=== PATIENT | male | born 1960 | race African-American/Black ===

== ENCOUNTER 2019-07-25 21:21 | Emergency (ER) | payer BC, OTHER ==
[~2019-07-25] VITALS: Ht 177.8 cm; Wt 86.6 kg
[~2019-07-25 21:21] MED LIST: AMLODIPINE BESYL5 M1 PO; ATORVASTATIN CA20 MG PO; AUGMENTIN 875875 MG PO; COLACE100 MG PO; HYDROCODONE-AP1 EAC6 PO; MIRALAX17 GM PO; PLAVIX 75 MG TA75 M1 PO; PRINIVIL20 MG PO; TOPROL XL100 MG PO; VITAMIN D1000 UNI1 PO; XANAX1 MG PO
[2019-07-25] MEDS ORDERED: VALTREX1000 MG PO (21:34)
[2019-07-25] MEDS ORDERED: LUBRICANT DRY E15 ML TOP (21:34)
[2019-07-25] MEDS ORDERED: PREDNISONE 20 M20 MG PO (21:34)
[2019-07-25 22:41] VITALS: BP 1173/11
== END 2019-07-25 22:51 | disposition home or self-care (01) ==
LOC: ER 21:21
DX: G51.0 Bell's palsy (principal); F17.210 Nicotine dependence, cigarettes, uncomplicated; I10 Essential (primary) hypertension; E78.5 Hyperlipidemia, unspecified; K21.9 Gastro-esophageal reflux disease without esophagitis; Z95.5 Presence of coronary angioplasty implant and graft; Z88.8 Allergy status to other drugs, medicaments and biological substances

== ENCOUNTER 2020-05-26 19:32 | Inpatient (IN) | payer BC, OTHER ==
[~2020-05-26] VITALS: Ht 177.8 cm; Wt 79.4 kg
--- NOTE | ~2020-05-26 | HC ---
[facility] [place] [address] CONSULTATION Name: JANES BREAUX Room #: 210- ADM IN M.R.#: [id number] Admission: 05/26/20 Attend Phys: Vance Cedillo MD Discharge: Date of : 62 Report #: [id number] THIS REPORT FOR: cc: ROCÍO - No family physician/PCP ROCÍO - No family physician/PCP Adair Helton MD ~ CC: [facility] physician/PCP Vance Cedillo DATE OF SERVICE: 06/01/2020 HISTORY OF PRESENT ILLNESS: The patient is a 60-year-old -Ukrainian male admitted to [facility] with prior MT, stents x 7, hypertension, hyperlipidemia, GERD and Cristobal's palsy. He had chest pain, shortness of breath. He was ruled in for an acute MT and had a JULIETA stent placed. He has new onset atrial fibrillation. He also had acute hypoxic respiratory failure. We are seeing him now in rehabilitation medicine consultation. PAST MEDICAL HISTORY: Includes hypertension, prior MT in 2004 and 2010 with 7 stents, hyperlipidemia, GERD, Cristobal's palsy. HABITS: Current every day tobacco smoker. Alcohol use monthly. MEDICATIONS: Please see the full medication listing. ALLERGIES: LISINOPRIL. SOCIAL HISTORY: Lives in an apartment alone, 12 steps in. No assistive device. 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 REVIEW OF SYSTEMS: Did not offer any current complaints of chest pain, shortness of breath or abdominal discomfort. PHYSICAL EXAMINATION: GENERAL: This is a 60-year-old slender -Ukrainian male in no obvious distress. VITAL SIGNS: Last recorded temperature 98.8, pulse 81, respirations 18, blood pressure is 94/64. He is alert, pleasant, and oriented. 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 He is alert and good historian. EXTREMITIES: Functional range of motion to both upper extremities without focal weakness. Lower extremities functional range of motion without obvious focal weakness. He has been able to ambulate 250 feet without an assistive device. Standby assistance and did well with showers, lower extremity dressing and basic ADLs and Occupational Therapy has actually discharged him. ASSESSMENT: This is a 60-year-old -Ukrainian male with the following [facility] [address] [place] [address] CONSULTATION Name: NAMITAJANES Petar Room #: 210-P [facility] IN [facility].#: [id number] Admission: 05/26/20 Attend Phys: Vance Cedillo MD Discharge: Date of : 62 Report #: [id number] problems: 1. Acute myocardial infarction, now status post JULIETA stent. 2. New onset atrial fibrillation. 3. Prior history of myocardial infarction and multiple stents. 4. Hypertension. 5. Gastroesophageal reflux disease. 6. Cristobal's palsy. 7. Prior history of chronic tobacco usage. He knows that he must quit. PLAN: The patient is actually too high level to warrant an acute in-hospital inpatient rehabilitation stay. He is doing quite well and would anticipate he should be able to return directly home when medically cleared. Occupational Therapy has already discharged him and he is at a high level with physical therapy. He might benefit from some cardiac rehab as an outpatient or whatever Cardiology feels is appropriate. Thank you for asking us to assist in this patient's care. By: [phone] Adair Helton MD /PMT
[~2020-05-26 19:32] MED LIST changes: +LUBRICANT DRY E15 ML TOP; +PREDNISONE 20 M20 MG PO; +VALTREX1000 MG PO
[2020-05-26 19:34] VITALS: BP 164/116
[2020-05-26 20:07] LABS: ABSOLUTE NEUTROPHILS 12.1 thou/uL (1.4-8.2); BASOPHILS 0.8 % (0.0-2.0); EOSINOPHILS 0.1 % (0.0-3.0); HEMATOCRIT 41.4 % (42.0-52.0); HEMOGLOBIN 13.2 gm/dL (14.0-18.0); LYMPHOCYTES 10.6 % (24.0-44.0); MCH 26.3 pg (26.0-34.0); MCHC 31.8 g/dL (28.0-37.0); MCV 82.8 fL (80.0-100.0); MONOCYTES 9.4 % (1.0-8.0); PLATELET COUNT 273 thou/uL (150-400); POLYS 79.1 % (36.0-66.0); RDW 21.4 % (10.5-14.5); WBC 15.2 thou/uL (4.0-11.0)
[2020-05-26 20:10] LABS: CALCIUM 9.3 mg/dL (8.5-10.1); CREATININE 1.2 mg/dL (0.7-1.3); POTASSIUM 4.2 mmol/L (3.5-5.1)
[2020-05-26 20:41] LABS: TROPONIN-I 166.72 ng/mL (<0.06)
--- NOTE | 2020-05-26 20:50 | NUR ---
SPOKE TO SODA JERKER NURSE
[2020-05-26 21:30] VITALS: BP 145/97
[2020-05-26 23:41] VITALS: BP 136/110
[2020-05-26 23:45] VITALS: BP 138/111
[2020-05-27] VITALS (43 sets, daily range): BP systolic 98–149; BP diastolic 63–117
--- NOTE | 2020-05-27 00:22 | NUR ---
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 Right groin site soft, no s/s of bleeding or hematoma. Santana cath placed per pt request since he cannot urinate laying down and received Lasix 40 mg IVP x2 in track repair laborer. Monitor ST, rate 114; pt on 2 L nasal canula, sat 97%/
[2020-05-27 05:43] LABS: HEMATOCRIT 37.6 % (42.0-52.0); HEMOGLOBIN 11.9 gm/dL (14.0-18.0); MCH 26.2 pg (26.0-34.0); MCHC 31.7 g/dL (28.0-37.0); MCV 82.5 fL (80.0-100.0); RBC 4.56 mil/uL (4.50-6.00); RDW 21.3 % (10.5-14.5); WBC 12.7 thou/uL (4.0-11.0)
[2020-05-27 06:13] LABS: ALBUMIN 3.2 g/dL (3.4-5.0); CALCIUM 8.8 mg/dL (8.5-10.1); CREATININE 1.2 mg/dL (0.7-1.3); POTASSIUM 4.2 mmol/L (3.5-5.1); TOTAL BILIRUBIN 0.6 mg/dL (0.2-1.0); TOTAL PROTEIN 6.9 g/dL (6.4-8.2)
[2020-05-27 06:37] LABS: CHOLESTEROL 132 mg/dL (<200); HDL CHOLESTEROL 49 mg/dL (>40); LDL CHOLESTEROL 68 mg/dL (<100); SERUM ASSESSMENT Clear; TC:HDL 2.7 Ratio (Not establshd); TRIGLYCERIDE 77 mg/dL (<150); VLDL 15 mg/dL (<40)
[2020-05-27 07:05] LABS: TROPONIN-I 175.88 ng/mL (<0.06)
--- NOTE | 2020-05-27 07:34 | NUR ---
No chest pain or SOA since return from recyclable materials sorter. Monitor sinus tachycardia, 106-116, without ectopy. Diuresed well from Lasix given in recyclable materials sorter, 1700 cc this shift.
--- NOTE | 2020-05-27 11:24 | CATHLAB ---
[facility] [place] [address] [place] [address] [place] [address] INVASIVE PROCEDURE REPORT Name: JANES BREAUX Room #: 240-P ADM IN M.R.#: [id number] Admission: 05/26/20 Attend Phys: Vance Cedillo MD Discharge: Date of : 62 Report #: [id number] THIS REPORT FOR: cc: FAM - No family physician/PCP FAM - No family physician/PCP Samson Mann MD ~ APPROVED REPORT Study performed: 05/26/2020 21:19:16 Patient Details Patient Status: ED Room #: The patient is a 60 year-old male Event Personnel Samson Mann Water Project Engineer, Santana Akbar RN, Sara Martinez RTR, MINER PLACER Monitor, Enma Gómez RTR Scrub Procedures Performed Art Access - R femoral artery* Left Heart Cath w/or w/o Coronaries [id number] [facility] PTCA Single Vessel LAD [id number] [place] JULIETA Place w/wo Plasty Single OM 056125 Hemostasis w/ Mynx Indication CHF Current Status: Yes , Non-STEMI (>24 hrs to = 48 hrs), Dyspnea, Chest pain, The patient presented with postinfarct angina, with onset of chest discomfort greater than 24 hours prior to presentation. He has a history of 2 MIs and multiple stent placement at a different institution. He reported continuous chest pain and dyspnea, attributed to CHF. The initial troponin level was markedly elevated. With his continued chest pain, he was taken emergently to the cardiac catheterization laboratory. Risk Factors Peripheral Vascular Disease, Hypercholesterolemia, Coronary Artery DiseaseHypertension, Tobacco History () Previous Procedures/Diagnoses Previous PCI, Previous Femoral Procedure, Previous CO Procedure Narrative The Right Groin^ was infiltrated with 1% Lidocaine subcutaneous anesthesia. A PINNACLE 6FR Sheath #[id number] sheath was inserted into the RFA^. Coronary angiography was performed using coronary [facility] [place] [address] INVASIVE PROCEDURE REPORT Name: NAMITAJANES Petar Room #: 240-P [facility] IN .R.#: [id number] Admission: 05/26/20 Attend Phys: Vance Cedillo MD Discharge: Date of : 62 Report #: [id number] diagnostic catheters. The right coronary system was accessed and visualized with a JR4 catheter. The left coronary system was accessed and visualized with a JL4 catheter. The left ventricle was accessed and visualized with a ANGLED PIGTAIL catheter. Left ventricular/Aortic Valve gradient assessed via catheter pullback. Pre-demployment femoral angiogram was performed . Closure device was deployed with a 6 Fr MYNXGRIP 6/7F #[id number]. The patient tolerated the procedure well and there were no complications associated with the procedure. There was no hematoma. Intraoperative Conscious Sedation No conscious sedation was used. Fluoro Time: 27.09 minutes Dose: DAP 63733.90 cGycm2 3672 mGy Contrast Type and Amount: Visipaque-305ml Coronary Angiography The patient's coronary anatomy is right dominant. Diagnostic Cath Left Main The left main artery is a large-caliber vessel, patent with no flow-limiting lesions. LAD There are multiple overlapping stents at the ostium and extending out to the proximal/mid segment of the LAD. After giving of a moderate-sized first diagonal artery and septal food specialist, there is a total occlusion. Diagonal 1 This is a moderate-sized caliber vessel, extending out to the distal lateral wall. There is a moderate stenosis at the ostium. Circumflex Left circumflex artery gives off 1 moderate-sized OM vessel. OM1 There is a severe stenosis in the proximal segment, 99%. After that stenosis, the OM vessels supplies several branches as it travels down the lateral wall. Right Coronary The RCA is a dominant vessel with a stent in the midsegment. There is a total occlusion in the midsegment, appears chronic. R PDA This is filled via collateral circulation from the left coronary artery. RPLV This is filled via collateral circulation from the left coronary artery. Left Ventriculography Left Ventriculography was not performed. An LVEDP was measured and there is no gradient across the outflow tract. [facility] [address] [place] [address] INVASIVE PROCEDURE REPORT Name: ANAJANES ALVAREZ Room #: 240-P [facility] IN .R.#: [id number] Admission: 05/26/20 Attend Phys: Vance Cedillo MD Discharge: Date of : 62 Report #: [id number] Hemodynamics The aortic pressure is 151/115 mmHg with a mean of 130 mmHg. The left ventricular pressure is 136/38 mmHg with a mean of mmHg. The left ventricular end diastolic pressure is 53 mmHg. PCI Technique Lesion Percutaneous coronary intervention was performed on the Proximal/mid left anterior descending artery segment. The lesion stenosis prior to intervention was 100% with TASHI 0 flow. A VISTA 6FR XB 3.5 #[id number] Guide Catheter was used to engage the ostium. A Luge Wire (J) .014 X 182CM #[id number] Interventional Guidewire was used to cross the lesion. BALLOON DILATION A Balloon catheter Sprinter OTW 2.5 x 12 #[id number] was inserted and inflated up to 10.00atm for 17seconds. Additional Inflation: 14.00atm for 15seconds. Additional Inflation: 14.00atm for 12seconds. POST STENT DEPLOYMENT BALLOON DILATION A Balloon catheter TREK NC RX 2.75 X 12 #[id number] was inserted and inflated up to 24.00atm for 39seconds. Additional Inflation: 6.00atm for 17seconds. Additional Inflation: 6.00atm for 9seconds. Additional Inflation: 6 angela for 14 seconds COMMENTS With balloon angioplasty, there was scientologist of blood flow down to the mid segment of the LAD. No further PCI was performed due to complete occlusion of the distal LAD segment. PCI Technique Lesion 2 Percutaneous Coronary Intervention was performed on the first obtuse marginal branch segment. Percutaneous coronary intervention was performed on the first obtuse marginal branch segment. The lesion stenosis prior to intervention was 99% with TASHI 2 flow. A VISTA 6FR XB 3.5 #[id number] Guide Catheter was used to engage the ostium. A Luge Wire (J) .014 X 182CM #[id number] Interventional Guidewire was used to cross the lesion. Balloon Dilation A Balloon catheter Sprinter OTW 2.5 x 12 #[id number] was inserted and inflated up to 6.00atm for 17seconds. Additional Inflation: 10.00atm for 17seconds. Stent Deployment A drug-eluting stent RESOLUTE GATITO RX 2.5 X 22 #[id number] was inserted [address] [place] [address] INVASIVE PROCEDURE REPORT Name: JANES BREAUX Petar Room #: 240-P ADM IN M.R.#: [id number] Admission: 05/26/20 Attend Phys: Vance Cedillo MD Discharge: Date of : 62 Report #: [id number] and inflated up to 18.00atm for 25seconds. Post Stent Deployment Balloon Dilation A Balloon catheter Euphora NC RX 2.75 x 12 #[id number] was inserted and inflated up to 18.00atm for 12seconds. Additional Inflation: 18.00atm for 11seconds. Final angiography reveals 0 % stenosis with TASHI 3 flow. Conclusion 1. Successful insertion of a JULIETA to a moderate-sized OM1 vessel. 2. Hindu of blood flow down to the mid segment of the LAD. The distal LAD is completely occluded. 3. Chronic occlusion of the RCA, the distal branches are filled via collateral circulation from the left coronary artery. 4. Ischemic cardiomyopathy. 5. Recommend dual antiplatelet therapy and guideline directed medical therapy. <ELECTRONICALLY SIGNED> By: Samson Mann MD 05/27/20 1123 22 22 Samson Mann MD /INF
--- NOTE | 2020-05-27 12:03 | NUR ---
PT SLEEPY THIS SHIFT. REFUSED BREAKFAST. STATES HE WANTS TO SLEEP. PT REPORTS CHEST PAIN TO NURSE APPROX 11:28. CALLED AND NOTIFIED PHYSICIAN. NITRO GIVEN AND EKG PERFORMED PER ORDERS. PT STATES PAIN RESOLVED WITH NITRO. PROVIDER IN UNIT TO READ EKG. NO FURTHER ORDERS AT THIS TIME. PT RESTING IN BED WITH EYES CLOSED. CONTINUING TO MONITOR PT VS & DIURESIS.
--- NOTE | 2020-05-27 12:47 | HC ---
[facility] [place] [address] CONSULTATION Name: JANES BREAUX Room #: 240- ADM IN M.R.#: [id number] Admission: 05/26/20 Attend Phys: Vance Cedillo MD Discharge: Date of : 62 Report #: [id number] THIS REPORT FOR: cc: ROCÍO - Ashley family physician/PCP ROCÍO - No family physician/PCP Samson Mann MD ~ CC: Maria Dolores ALFORD physician/PCP DATE OF SERVICE: 05/26/2020 CARDIOLOGY CONSULTATION INDICATION: Chest pain. HISTORY OF PRESENT ILLNESS: This is a 60-year-old gentleman with a history of AR, CAD, multiple stents, hypertension, hyperlipidemia, GERD, facial droop and tobacco use, presenting with chest pain and shortness of breath. The patient reports that he developed substernal chest pain yesterday around noon time. The pain persisted all day long. Today, he woke up with pain and it became worse. Eventually, he decided to come to the ER. He had difficulty getting into the hospital, was found in the parking lot. He denies any recent fever, chills, nausea or diarrhea. He did have a cough. He also complains of shortness of breath. Initial EKG reveals sinus tachycardia with Q-waves in the anteroseptal leads with right bundle-branch block. Initial troponin is 166.72. His pain is improved with medications, still present. PAST MEDICAL HISTORY: Multiple MIs in 2004 and 2010. The patient has a history 7 coronary stents. Tobacco use, hypertension, hyperlipidemia and facial droop, GERD. ALLERGIES: LISINOPRIL, JARON INHIBITOR. MEDICATIONS: Include metoprolol 100 mg daily, clopidogrel 75, atorvastatin 20 mg daily, amlodipine 5 mg daily, Augmentin. SOCIAL HISTORY: Positive tobacco use, less than a pack a day. FAMILY HISTORY: Negative for premature CAD. REVIEW OF SYSTEMS: Please see HPI. PHYSICAL EXAMINATION: VITAL SIGNS: Blood pressure is 160/80, heart rate is 110 beats per minute. GENERAL APPEARANCE: This is an elderly-appearing male, in mild respiratory distress. [facility] [address] [place] [address] CONSULTATION Name: JANES BREAUX Room #: 240-P [facility] IN M.R.#: [id number] Admission: 05/26/20 Attend Phys: Vance Cedillo MD Discharge: Date of : 62 Report #: [id number] HEENT: Normocephalic, atraumatic. Oral mucosa moist. NECK: Supple. LUNGS: Diminished breath sounds at the bases. CARDIAC: Regular rate and rhythm, S1, S2 positive. ABDOMEN: Soft, nontender. EXTREMITIES: No cyanosis. Trace edema. ECG reveals sinus tachycardia, right bundle-branch block, Q-waves in the anteroseptal leads and inferior leads. Troponin level is positive at 166.72. ASSESSMENT AND PLAN: 1. Post-infarct angina greater than 24 hours onset. The patient reports having developed chest pain yesterday around noon time. Finally, decided to come to the ER today. Still having symptoms of chest discomfort. We will proceed with a cardiac catheterization. I discussed with him the risks, benefits and alternatives. The patient voices understanding. 2. Respiratory failure, rule out congestive heart failure. Chest x-ray is suggestive for heart failure. We will treat with Lasix. We will need an evaluation of his LV function. 3. Tobacco use, complete smoking cessation is advised. 4. Hypertension, elevated blood pressure, secondary to #1 and #2. Continue blood pressure medications. 5. Hypercholesterolemia, continue on Lipitor. 6. Peripheral vascular disease, history of left lower extremity stent. <ELECTRONICALLY SIGNED> By: Samson Mann MD 05/27/20 1247 2139 Samson Mann MD /nt
--- NOTE | 2020-05-27 15:55 | NUR ---
Chart reviewed and case discussed with the care team. Pt in Enhanced ISO with one covid neg and second test pending. The pt went to the label operator this am after presenting to the ER with chest pain and elev trop. 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 He lives in an apt and has health insurance in place for f/u care. The pt has a hx of CAD with previous stenting. No cm interventions indicated at this time. Will follow along should dc needs arise.
--- NOTE | 2020-05-27 20:46 | NUR ---
Pt has had two confirmed negative Covid swabs. Will be taken out of enhanced precautions per Infectious Disease nurse, Bridgette Delacruz RN, and made critical care tele. Pt to transfer to room 248.
[2020-05-28] VITALS (11 sets, daily range): BP systolic 94–122; BP diastolic 68–90
--- NOTE | 2020-05-28 00:25 | NUR ---
RECIEVED PATIENT FROM ROOM 240 TO 248, ASSUMED CARE AT 05/27/20 2300, PATIENT PLACED ON MONITOR, QUESTIONS ANSWERED. NO SIGN OF ACUTE DISTRESS NOTED AT THIS TIME.
--- NOTE | 2020-05-28 04:45 | NUR ---
RECEIVED REPORT FROM ENTERPRISE INTEGRATION DEVELOPER KIMBERLY, STATED PT WAS COMING BY WHEELCHAIR. PT AT THIS TIME IS RECEIVING ABX FLUID SO WHEN FINISHED, PT WILL TRANSFER TO ROOM 210. NO NAUSEA, PT ON 2L/NC, LOVELACE IN PLACE R/T LASIX, R GROIN FLAME BURNER SITE SECURED BY TEGADERM; RN TO MONITOR SITE Q4H OR PRN. WAS TOLD DR. SILVER IS ON THE CASE (CARDIOLOGY), REPORTED IF CHEST PAIN OCCURS TO ADMIN 3 NITRO, IF PAIN PERSIST THEN TO RETREIVE EKG IT MAY BE INDICATIVE OF STENT PLACEMENT OCCLUSION. AND TO NOTIFY DR. SILVER WILL CONTINUE TO UPDATE NEEDED
--- NOTE | 2020-05-28 05:45 | NUR ---
PATIENT ALERT AND ORIENTED X4, NO COMPLAINTS OF CHEST PAIN, SR-ST ON PSYCHIATRIST W/ BBB. 2/1 PULSES, RIGHT GROIN SITE INTACT WITH NO SIGN OF HEMATOMA. LOVELACE IN PLACE DUE TO IV LASIX ADMINISTRATION, DARK YELLOW URINE 300 ML OUT THROUGHOUT THE NIGHT. DISCUSSED PATIENT TRANSFERRING TO CCU PATIENT STATED WILL NOTIFY FAMILY IN THE MORNING. NO SIGN OF ACUTE DISTRESS NOTED AT THIS TIME, REPORT GIVEN TO ONCOMING RN TRANSFERRED FROM ICU BED 248 TO CCU BED 210.
[2020-05-28 05:55] LABS: ABSOLUTE NEUTROPHILS 10.7 thou/uL (1.4-8.2); BASOPHILS 0.8 % (0.0-2.0); EOSINOPHILS 0.1 % (0.0-3.0); HEMATOCRIT 34.1 % (42.0-52.0); HEMOGLOBIN 10.8 gm/dL (14.0-18.0); LYMPHOCYTES 10.7 % (24.0-44.0); MCH 26.1 pg (26.0-34.0); MCHC 31.6 g/dL (28.0-37.0); MCV 82.5 fL (80.0-100.0); MONOCYTES 9.7 % (1.0-8.0); PLATELET COUNT 212 thou/uL (150-400); POLYS 78.7 % (36.0-66.0); RBC 4.13 mil/uL (4.50-6.00); RDW 21.6 % (10.5-14.5); WBC 13.6 thou/uL (4.0-11.0)
[2020-05-28 06:27] LABS: CALCIUM 8.7 mg/dL (8.5-10.1); CREATININE 1.1 mg/dL (0.7-1.3); MAGNESIUM 1.8 mg/dL (1.8-2.4); POTASSIUM 3.4 mmol/L (3.5-5.1)
[2020-05-28 06:32] LABS: TROPONIN-I 40.45 ng/mL (<0.06)
--- NOTE | 2020-05-28 07:47 | EKG ---
[facility] [place] [address] ELECTROCARDIOGRAM REPORT Name: JANES BREAUX Room #: 210-P ADM IN M.R.#: [id number] Admission: 05/26/20 Attend Phys: Vance Cedillo MD Discharge: Date of : 62 Report #: [id number] THIS REPORT FOR: cc: ROCÍO - Ashley family physician/PCP ROCÍO - Ashley family physician/PCP Franco Ortiz MD [facility] THIS REPORT FOR: //name// [facility] ED Test Date: 2020-05-26 Test Time: 19:44:30 Pat Name: JANES BREAUX Department: Room: 210 Gender: M Medical Office Professional Instructor: : 1960 Requested By: Jose Calvillo Order Number: [id number] MD: Franco Ortiz Measurements Intervals [place] Rate: 119 P: 76 MI: 151 QRS: 126 QRSD: 149 T: 31 QT: 354 QTc: 499 Interpretive Statements Sinus tachycardia RBBB and LPFB Inferior infarct, possibly acute Anterior infarct, possibly acute Compared to ECG 06/24/2015 14:44:22 Left posterior fascicular block now present Right bundle-branch block now present Myocardial infarct finding now present Electronically Signed On 05-28-2020 7:47:39 CDT by Franco Ortiz [email or web address] <ELECTRONICALLY SIGNED> By: Franco Ortiz MD, [facility] 05/28/20 0747 43 43 Franco Ortiz MD, [facility] /EPI
--- NOTE | 2020-05-28 07:49 | EKG ---
[facility] [place] [address] ELECTROCARDIOGRAM REPORT Name: JANES BREAUX Room #: 210-P ADM IN M.R.#: [id number] Admission: 05/26/20 Attend Phys: Vance Cedillo MD Discharge: Date of : 62 Report #: [id number] THIS REPORT FOR: cc: ROCÍO - Ashley family physician/PCP ROCÍO - No family physician/PCP Franco Ortiz MD [facility] THIS REPORT FOR: //name// [facility] Test Date: 2020-05-27 Test Time: 08:28:52 Pat Name: JANES BREAUX Department: Room: 210 Gender: M Senior Electrical Engineer: PATTY : 1960 Requested By: Samson Mann Order Number: [id number] MD: Franco Ortiz Measurements Intervals [place] Rate: 120 P: 79 RI: 119 QRS: 117 QRSD: 155 T: 54 QT: 459 QTc: 649 Interpretive Statements Sinus tachycardia Probable left atrial enlargement RBBB and LPFB Inferior infarct, old Anterior infarct, acute (LAD) Compared to ECG 06/24/2015 14:44:[address] segment abnormality is less pronounced Electronically Signed On 05-28-2020 7:49:50 CDT by Franco Ortiz [email or web address] <ELECTRONICALLY SIGNED> By: Franco Ortiz MD, [facility] 05/28/20 0749 7 Franco Ortiz MD, FAC /EPI
--- NOTE | 2020-05-28 07:52 | EKG ---
[facility] [place] [address] ELECTROCARDIOGRAM REPORT Name: JNAES BREAUX Room #: 210-P ADM IN M.R.#: [id number] Admission: 05/26/20 Attend Phys: Vance Cedillo MD Discharge: Date of : 62 Report #: [id number] THIS REPORT FOR: cc: ROCÍO - Ashley family physician/PCP ROCÍO - Ashley family physician/PCP Franco Ortiz MD [facility] THIS REPORT FOR: //name// [facility] Test Date: 2020-05-27 Test Time: 11:51:45 Pat Name: JANES BREAUX Department: Room: 210 Gender: M Legal Executive: PATTY : 1960 Requested By: Samson Mann Order Number: [id number] MD: Franco Ortiz Measurements Intervals [place] Rate: 119 P: 65 MS: 118 QRS: 113 QRSD: 153 T: 44 QT: 466 QTc: 656 Interpretive Statements Sinus tachycardia Probable left atrial enlargement RBBB and LPFB Inferior infarct, old Anterior infarct, recent Compared to ECG 05/27/2020 08:28:52 No significant changes Electronically Signed On 05-28-2020 7:52:01 CDT by Franco Ortiz [email or web address] <ELECTRONICALLY SIGNED> By: Franco Ortiz MD, [facility] 05/28/20 0752 1151 1151 Franco Ortiz MD, [facility] /EPI
--- NOTE | 2020-05-28 09:15 | 2DMMODE ---
[facility] [place] [address] 2 D/M-MODE ECHOCARDIOGRAM Name: JANES BREAUX Room #: 210-P ADM IN M.R.#: [id number] Admission: 05/26/20 Attend Phys: Vance Cedillo MD Discharge: Date of : 62 Report #: [id number] THIS REPORT FOR: cc: FAM - No family physician/PCP FAM - No family physician/PCP Samson Mann MD ~ APPROVED REPORT Study performed: 05/28/2020 07:22:15 EXAM: Comprehensive 2D, Doppler, and color-flow Echocardiogram Patient Location: Bedside Room #: 210 Status: routine BSA: 2.00 HR: 100 bpm BP: 117/77 mmHg Rhythm: Irregular Other Information Study Quality: Adequate/low parasternal window. Indications Chest pain, SOB. Status post STEMI and PCI. Heart failure. Hx: TX, multiple stents, HTN, HLP, tob abuse. 2D Dimensions RVDd: 36.76 mm IVSd: 10.42 (7-11mm) LVOT Diam: 19.51 (18-24mm) LVDd: 45.19 mm PWd: 11.54 (7-11mm) LVDs: 36.50 (25-40mm) Aortic Root: 32.11 mm Volumes Left Atrial Volume (Systole) Single Plane 4CH: 38.85 mL Single Plane 2CH: 70.32 mL LA ESV Index: 29.00 mL/m2 Aortic Valve AoV Peak Richard.: 1.54 m/s AO Peak Gr.: 9.47 mmHg LVOT Max P.90 mmHg LVOT Max V: 1.21 m/s CORRINA Vmax: 2.36 cm2 [facility] [address] [place] [address] 2 D/M-MODE ECHOCARDIOGRAM Name: ANAJANES ALVAREZ Room #: 210-P [facility].#: [id number] Admission: 05/26/20 Attend Phys: Vance Cedillo MD Discharge: Date of : 62 Report #: [id number] Mitral Valve E/A Ratio: 1.5 MV Decel. Time: 134.22 ms MV E Max Richard.: 0.94 m/s MV A Richard.: 0.64 m/s MV PHT: 38.92 ms IVRT: 64.59 ms Pulmonary Valve PV Peak Richard.: 1.38 m/s PV Peak Gr.: 7.67 mmHg Pulmonary Vein P Vein S: 0.31 m/s P Vein A: 0.44 m/s P Vein D: 0.44 m/s P Vein A Dur.: 83.0 msec P Vein S/D Ratio: 0.70 Tricuspid Valve TR Peak Richard.: 3.19 m/s RAP Estimate: 15.00 mmHg TR Peak Gr.: 41.00 mmHg PA Pressure: 56.00 mmHg Left Ventricle The left ventricle is normal size. Regional wall motion abnormalities are noted. There is normal left ventricular wall thickness. Left ventricular systolic function is moderate to severely decreased. LVEF is 30%. Moderate diastolic dysfunction is present. Right Ventricle The right ventricle is normal size. The right ventricular systolic function is low normal. Atria The left atrium size is normal. The right atrium size is normal. Aortic Valve Aortic valve is mildly calcified. No aortic regurgitation is present. There is no aortic valvular stenosis. Mitral Valve Mitral valve leaflets are mildly thickened. Mild mitral annular calcification. Mild to moderate mitral regurgitation. No evidence of mitral valve stenosis. Tricuspid Valve [facility] [address] [place] [address] 2 D/M-MODE ECHOCARDIOGRAM Name: JANES BREAUX Room #: 210-P ADM IN M.R.#: [id number] Admission: 05/26/20 Attend Phys: Vance Cedillo MD Discharge: Date of : 62 Report #: [id number] The tricuspid valve is normal in structure. Mild tricuspid regurgitation. Estimated PAP is 50mmHg. Pulmonic Valve Pulmonic valve is not well visualized. Trace pulmonic regurgitation. Great Vessels The aortic root is normal in size. Ascending aorta is not well visualized. IVC is dilated and collapses <50% with inspiration. Pericardium There is no pericardial effusion. <Conclusion> The left ventricle is normal size. Left ventricular systolic function is moderate to severely decreased. LVEF is 30%. Regional wall motion abnormalities are noted. Moderate diastolic dysfunction is present. The right ventricle is normal size. The left atrium size is normal. Aortic valve is mildly calcified. Mild to moderate mitral regurgitation. Mild tricuspid regurgitation. Estimated PAP is 50mmHg. <ELECTRONICALLY SIGNED> By: Samson Mann MD 05/28/20913 3 3 Samson Mann MD /INF
[2020-05-28 13:34] LABS: URINE BLOOD 2+ (Negative); URINE CLARITY CLEAR; URINE COLOR YELLOW; URINE GLUCOSE-RANDOM* NEGATIVE (Negative); URINE KETONES NEGATIVE (Negative); URINE LEUKOCYTES-REFLEX NEGATIVE (Negative); URINE NITRITE-REFLEX NEGATIVE (Negative); URINE PROTEIN (DIPSTICK) TRACE (Negative); URINE SPECIFIC GRAVITY >= 1.030 (1.005-1.035)
[2020-05-28 13:38] LABS: ICTOTEST (BILI CONFIRMATORY) Negative (Negative); URINE BILIRUBIN NEGATIVE (Negative)
[2020-05-28 13:47] LABS: BACTERIA-REFLEX 1-9 Few /HPF (None Seen); CASTS None Seen /LPF (None Seen); CRYSTALS None Seen /LPF (None Seen); SQUAMOUS 4-10 Moderate /LPF (0-3); URINE RBC 3-10 Few /HPF (0-2); URINE WBC-REFLEX 0-5 Rare /HPF (0-5)
--- NOTE | 2020-05-28 18:37 | NUR ---
ASSUMED CARE OF PATIENT AT 0700. ASSESSMENT COMPLETED. PATIENT COMPLAINED OF CHEST PAIN 8/10 AND WAS TREATED WITH NITRO X 3, TAKING PAIN TO 3/10. EKG ORDERED. PATIENT SEEN BY DR. SILVER AND ROX LOZOYA. PAIN REPRODUCIBLE BY DR. SILVER'S ASSESSMENT. PATIENT C/O FATIGUE AND NAUSEA. NAUSEA TREATED WITH ZOFRAN. PATIENT GIVEN NICOTINE PATCH. LOVELACE D/C AND PATIENT URINATED WITHOUT ANY PAIN OR DIFFICULTY. PATIENT UP IN CHAIR FROM LUNCH TO DINNER BEFORE ASKING TO GO BACK TO BED. PATIENT AMBULATED WITH CARDIAC REHAB AND OT. PATIENT'S NIECE WAS AT THE BEDSIDE FOR THE MAJORITY OF THE DAY. PATIENT TO CONTINUE WITH POC.
[2020-05-29] VITALS (7 sets, daily range): BP systolic 72–103; BP diastolic 59–74
[2020-05-29 05:31] LABS: ABSOLUTE NEUTROPHILS 10.5 thou/uL (1.4-8.2); BASOPHILS 0.4 % (0.0-2.0); EOSINOPHILS 0.1 % (0.0-3.0); HEMATOCRIT 33.4 % (42.0-52.0); HEMOGLOBIN 10.7 gm/dL (14.0-18.0); LYMPHOCYTES 9.3 % (24.0-44.0); MCH 26.3 pg (26.0-34.0); MCHC 32.2 g/dL (28.0-37.0); MCV 81.7 fL (80.0-100.0); MONOCYTES 11.4 % (1.0-8.0); PLATELET COUNT 239 thou/uL (150-400); POLYS 78.8 % (36.0-66.0); RBC 4.09 mil/uL (4.50-6.00); RDW 21.5 % (10.5-14.5); WBC 13.3 thou/uL (4.0-11.0)
[2020-05-29 05:35] LABS: CALCIUM 8.8 mg/dL (8.5-10.1); CREATININE 1.2 mg/dL (0.7-1.3)
[2020-05-29 06:10] LABS: TROPONIN-I 21.16 ng/mL (<0.06)
--- NOTE | 2020-05-29 08:11 | NUR ---
0505 PATIENT SLEPT MOST OF SHIFT PAST ULTRAM. TELEMETRY NOW SHOWS AFIB/FLUTTER 120-150'S. STAT EKG COMPLETED. CALL PLACED TO CARDIOLOGY. DR. PEGUERO NOTIFIED AND ORDERS RECIEVED. AMIODERONE GTT AND BOLUS STARTED. 0700 HR NOW IN THE 90'S. PATIENT RESTING QUIETLY WITHOUT PRESENT COMPLAINTS. CONTINUE TO ASSES CLOSELY.
--- NOTE | 2020-05-29 11:58 | NUR ---
CALLED [employer]RIE [employer] CALK[employer] TO INFORM OF HYPOTENSION. INSTRUCTED TO DC AMIODARONE GTT AND GIVE NS BOLUS. WILL CONTINUE TO ASSESS.
--- NOTE | 2020-05-29 16:01 | EKG ---
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 : 1960 Requested By: Zoe Mcfadden Order Number: [id number] MD: Franco Ortiz Measurements Intervals [place] Rate: 102 P: 75 ME: 156 QRS: 111 QRSD: 158 T: -45 QT: 405 QTc: 528 Interpretive Statements Sinus tachycardia Consider right atrial enlargement RBBB and LPFB Inferior infarct, age indeterminate Anterolateral infarct, recent Compared to ECG 05/27/2020 11:51:45 No significant changes Electronically Signed On 05-29-2020 16:00:50 CDT by Franco Ortiz [email or web address] <ELECTRONICALLY SIGNED> By: Franco Ortiz MD, FAC 05/29/20 1600 0 0 Franco Ortiz MD, FAC /EPI
--- NOTE | 2020-05-29 16:24 | EKG ---
[facility] [place] [address] ELECTROCARDIOGRAM REPORT Name: JANES BREAUX Room #: 210-P ADM IN M.R.#: [id number] Admission: 05/26/20 Attend Phys: Vance Cedillo MD Discharge: Date of : 62 Report #: [id number] THIS REPORT FOR: cc: ROCÍO - Ashley family physician/PCP ROCÍO - Ashley family physician/PCP Franco Ortiz MD [facility] THIS REPORT FOR: //name// [facility] Test Date: 2020-05-29 Test Time: 05:34:48 Pat Name: JANES BREAUX Department: Room: 210 P Gender: M Evp [place]: NAI TOURE : 1960 Requested By: Vance Cedillo Order Number: [id number] MD: Franco Ortiz Measurements Intervals [place] Rate: 106 P: CO: QRS: 120 QRSD: 152 T: -11 QT: 376 QTc: 500 Interpretive Statements Atrial flutter with predominant 3:1 AV block RBBB and LPFB Inferior infarct, old Anterior infarct, recent Compared to ECG 05/28/2020 08:31:09 Atrial flutter has replaced sinus tachycardia Electronically Signed On 05-29-2020 16:24:07 CDT by Franco Ortiz [email or web address] <ELECTRONICALLY SIGNED> By: Franco Ortiz MD, [facility] 05/29/20 1624 0534 0534 Franco Ortiz MD, FAC /EPI
--- NOTE | 2020-05-29 17:40 | NUR ---
INFORM DR VYAS OF PT'S LOW URINE OUTPUT. INSTRUCTED TO ECOURAGE PO FLUID.
--- NOTE | 2020-05-29 19:10 | NUR ---
PT UP WITH CARDIO REHAB AND PT/OT SEVERAL TIMES AROUND THE HALLS. PT TAKING IN GOOD PO. PROGRESSING TOWARDS GOALS.
[2020-05-30] VITALS (7 sets, daily range): BP systolic 88–119; BP diastolic 61–82
[2020-05-30 05:46] LABS: HEMOGLOBIN 10.7 gm/dL (14.0-18.0); MCH 26.7 pg (26.0-34.0); MCHC 32.4 g/dL (28.0-37.0); MCV 82.2 fL (80.0-100.0); RBC 4.02 mil/uL (4.50-6.00); RDW 21.3 % (10.5-14.5); WBC 9.8 thou/uL (4.0-11.0)
[2020-05-30 06:14] LABS: CREATININE 1.3 mg/dL (0.7-1.3); MAGNESIUM 2.3 mg/dL (1.8-2.4); POTASSIUM 3.9 mmol/L (3.5-5.1)
--- NOTE | 2020-05-30 06:32 | NUR ---
SLEPT MOST OF SHIFT. HAD 5 MINUTE RUN OF AFIB/FLUTTER THIS SHIFT AT 0007. PATIENT DENIES FEELING IT CHANGE. TRAMODAL GIVEN X2 FOR BACK AND NON CARDIAC CHEST PAIN. STATES THE PAIN IS WITH MOVEMENTS. UP AD SHADE IN ROOM WITH STEADY GAIT. WORKING ON GOALS AND PLAN OF CARE FOR NOC. CONTINUE TO MONITOR CLOSELY.
--- NOTE | 2020-05-30 18:43 | NUR ---
ASSUMED CARE OF PATIENT AT 0700. ASSESSMENTS COMPLETED. NO ABNORMAL CARDIAC RHYTHMS TODAY. DENIES ANY CHEST PAIN. PATIENT UP AD SHADE IN THE ROOM. PATIENT TAKING TRAMADOL FOR NON CARDIAC CHEST PAIN. PATIENT ANTICIPATING D/C MONDAY. PATIENT TO CONTINUE WITH POC.
[2020-05-31 05:34] VITALS: BP 107/77
--- NOTE | 2020-05-31 06:37 | NUR ---
ASSESSMENT DOCUMENTED PT BEEN RESTING IN NO ACUTE DISTRESS.SR/PACS/PVCS ON MONITOR.NO AFIB EPISODES NOTED.PT C/O NON CARDIAC CHEST PAIN THAT WAS CONTROLLED WITH PAIN MED.DENIES ANY OTHER NEEDS AT THIS TIME.PLAN TO DISCHARGE TOMORROW.WILL CONT TO MONITOR PER POC.
[2020-05-31 08:00] VITALS: BP 105/74
[2020-05-31 12:00] VITALS: BP 94/61
[2020-05-31 16:00] VITALS: BP 118/86
--- NOTE | 2020-05-31 17:12 | NUR ---
PT ALERT AND ORIENTED. SOB NOTED WITH ACTIVITY. SAT ABOVE 95% ON RA. DENIED HAVING PAIN. NO CARDIAC OR RESPIRATORY DISTRESS NOTED. PLAN TO BE DISCHARGE IN AM TO REHAB [address] [place] [address] TIMMONS CONSULTED. PT PROGRESSING WELL TOWARDS DISCHARGE GOAL. WILL CONTINUE TO MONITOR.
[2020-05-31 20:39] VITALS: BP 113/79
[2020-06-01 04:12] VITALS: BP 103/78
--- NOTE | 2020-06-01 05:12 | NUR ---
ASSESSMENT DOCUMENTED.PT BEEN RESTING IN NO ACUTE DISTRESS.VSS.C/O CONSTIPATION,MAG CITRATE WAS GIVEN WITH RESULTS OF BOWEL MOVEMENT AND PT VOICED MUCH RELIEF.PAIN MEDS GIVEN FOR NON CARDIAC CHEST PAIN WITH RELIEF.POSSIBLE DISCHARGE TODAY.WILL CONT TO MONITOR PER POC.
[2020-06-01 08:00] VITALS: BP 99/72
[2020-06-01 11:20] VITALS: BP 94/64
--- NOTE | 2020-06-01 13:33 | NUR ---
5N CONSULT RECEIVED. PER DR. TIMMONS, Pt IS TOO HIGH LEVEL FOR ACUTE REHAB. ACUTE OT SERVICES HAVE ALREADY DISCHARGED Pt. ANTICIPATE D/C TO HOME. THANK YOU FOR THIS REFERRAL.
[2020-06-01 16:00] VITALS: BP 100/72
--- NOTE | 2020-06-01 17:41 | NUR ---
ASSESSMENT CHARTED. PT ALERT AND ORIENTED. HAD LOW BP THIS AM. CARDIOLOGY AWARE. UP IN THE CHAIR THIS SHIFT. DENIED HAVING PAIN OR DISCOMFORT. PLAN TO DISCHARGE IN AM. WILL CONTINUE TO MONITOR.
[2020-06-01 20:10] VITALS: BP 111/83
--- NOTE | 2020-06-02 04:07 | NUR ---
ASSUMED PT CARE AT 1900. PT IS ALERT AND ORIENTED. PT IS SITTING IN PT. NO SIGN OF DISTRESS NOTED IN PT. DENIES ANY PT. ASSESSMENT COMPLETED AND DOCUMENTED. SCHEDULED MEDS ADMINISTERED TO PT. TOLERATED PO INTAKE. NO ACUTE EVENTS OVERNIGHT. CONTINUE TO MONITOR PT. NO NEEDS AT THIS TIME.
[2020-06-02 04:30] VITALS: BP 115/82
[2020-06-02 07:35] VITALS: BP 107/81
[2020-06-02 11:14] VITALS: BP 99/78
[2020-06-02 16:28] VITALS: BP 108/79
[2020-06-02 19:54] VITALS: BP 118/90
[2020-06-03 03:45] VITALS: BP 97/64
--- NOTE | 2020-06-03 04:30 | NUR ---
ASSUMED PT CARE AT 1900. PT IS ALERT AND ORIENTED. PT IS LAYING IN BED. PT IS STABLE. FALL PRECAUTION IN PLACE. ASSESSMENT COMPLETED AND DOCUMENTED. NO SIGN OF DISTRESS NOTED. PT IS EAGER TO GET DISCHARGED. SCHEDULED MEDS ADMINISTERED TO PT. CONTINUE TO MONITOR PT. NO FURTHER NEEDS AT THIS TIME.
[2020-06-03 07:13] VITALS: BP 118/92
[2020-06-03] MEDS ORDERED: CARVEDILOL3.125 MG PO (08:01)
[2020-06-03] MEDS ORDERED: LIPITOR40 MG PO (08:01)
[2020-06-03] MEDS ORDERED: PACERONE 200 M200 M1 PO (08:01)
[2020-06-03] MEDS ORDERED: ELIQUIS5 MG PO (08:01)
[2020-06-03] MEDS ORDERED: EFFIENT10 MG PO (08:01)
[2020-06-03 10:45] VITALS: BP 108/82
--- NOTE | 2020-06-03 11:38 | NUR ---
PT. RECEIVD DISCHARGE ORDERS AT THIS TIME AND WORKING IN SUCH NOW. HE IS "VERY EXCITED TO GO HOME TODAY". DENIES ANY PAIN CURRENTLY, VERY ALERT AND DISCUSSED REHAB WHEN HE GETS HOME AND ACITIVITIES GOOD FOR HIM TO DO. PT. HAS HIS NICOTINE PATCH ON AND I ENCOURAGED HIM TO TRY HIS BEST TO STOP SMOKING NOW SINCE HE HAS NOT BEEN DOING SUCH AND IT IS TH SINGLE BEST THING HE COULD DO FOR HIS CARDIAC OUTCOMES AND OVERALL HEALTH.
[2020-06-03 12:05] VITALS: BP 108/82
== END 2020-06-03 15:25 | disposition home or self-care (01) | DRG 246 ==
LOC: ER 19:32 → ICU 21:30 → EROBS 21:32 → ICU 21:32 → 2N 21:32 → ICU 05-27 00:47 → 2N 05-28 05:12
PROVIDERS: Emergency Medicine; Internal Medicine Cardiovascular Disease; Nurse Practitioner Family; ADMIT Internal Medicine; ATTEND Internal Medicine
PROC: 4A023N7 Measurement of Cardiac Sampling and Pressure, Left Heart, Percutaneous Approach (ICD-10-PCS; principal; 2020-05-26)
PROC: B211YZZ Fluoroscopy of Multiple Coronary Arteries using Other Contrast (ICD-10-PCS; principal; 2020-05-26)
PROC: 027135Z Dilation of Coronary Artery, Two Arteries with Two Drug-eluting Intraluminal Devices, Percutaneous Approach (ICD-10-PCS; principal; 2020-05-26)
DX: I21.02 ST elevation (STEMI) myocardial infarction involving left anterior descending coronary artery (principal); J18.9 Pneumonia, unspecified organism; J96.01 Acute respiratory failure with hypoxia; I50.23 Acute on chronic systolic (congestive) heart failure; E44.1 Mild protein-calorie malnutrition; I48.20 Chronic atrial fibrillation, unspecified; I48.92 Unspecified atrial flutter; I73.9 Peripheral vascular disease, unspecified; E78.5 Hyperlipidemia, unspecified; I11.0 Hypertensive heart disease with heart failure; I25.118 Atherosclerotic heart disease of native coronary artery with other forms of angina pectoris; E78.00 Pure hypercholesterolemia, unspecified; K21.9 Gastro-esophageal reflux disease without esophagitis; E87.6 Hypokalemia; F17.200 Nicotine dependence, unspecified, uncomplicated; F10.10 Alcohol abuse, uncomplicated; Z68.25 Body mass index [BMI] 25.0-25.9, adult; Z79.01 Long term (current) use of anticoagulants; I48.0 Paroxysmal atrial fibrillation; I25.5 Ischemic cardiomyopathy; I25.2 Old myocardial infarction; Z79.899 Other long term (current) drug therapy; Z88.8 Allergy status to other drugs, medicaments and biological substances; Z95.5 Presence of coronary angioplasty implant and graft
CPT/HCPCS: 10081; 10203

== ENCOUNTER 2020-06-10 15:11 | Inpatient (IN) | payer BC, OTHER ==
[~2020-06-10] VITALS: Ht 177.8 cm; Wt 79.4 kg
[~2020-06-10 15:11] MED LIST changes: +CARVEDILOL3.125 MG PO; +EFFIENT10 MG PO; +ELIQUIS5 MG PO; +LIPITOR40 MG PO; +PACERONE 200 M200 M1 PO
[2020-06-10 15:24] VITALS: BP 118/86
[2020-06-10 16:19] LABS: BASOPHILS 0.8 % (0.0-2.0); HEMATOCRIT 32.5 % (42.0-52.0); HEMOGLOBIN 10.7 gm/dL (14.0-18.0); LYMPHOCYTES 7.6 % (24.0-44.0); MCH 26.1 pg (26.0-34.0); MONOCYTES 10.5 % (1.0-8.0); PLATELET COUNT 586 thou/uL (150-400); POLYS 81.1 % (36.0-66.0); RBC 4.12 mil/uL (4.50-6.00); RDW 20.2 % (10.5-14.5); WBC 16.1 thou/uL (4.0-11.0)
[2020-06-10 16:29] LABS: CALCIUM 8.8 mg/dL (8.5-10.1); CREATININE 0.9 mg/dL (0.7-1.3); POTASSIUM 4.7 mmol/L (3.5-5.1)
[2020-06-10 16:38] LABS: TROPONIN-I 0.21 ng/mL (<0.06)
[2020-06-10 21:06] VITALS: BP 113/78
[2020-06-10 22:17] VITALS: BP 120/82
[2020-06-10 22:21] LABS: URINE BILIRUBIN NEGATIVE (Negative); URINE BLOOD TRACE (Negative); URINE CLARITY CLEAR; URINE COLOR YELLOW; URINE GLUCOSE-RANDOM* NEGATIVE (Negative); URINE KETONES NEGATIVE (Negative); URINE LEUKOCYTES NEGATIVE (Negative); URINE NITRITE NEGATIVE (Negative); URINE PROTEIN (DIPSTICK) NEGATIVE (Negative); URINE UROBILINOGEN 0.2 E.U./dl (0.2-1.0)
[2020-06-11 05:11] VITALS: BP 108/70
[2020-06-11 06:25] LABS: HEMATOCRIT 27.1 % (42.0-52.0); HEMOGLOBIN 8.8 gm/dL (14.0-18.0); MCH 25.7 pg (26.0-34.0); MCHC 32.5 g/dL (28.0-37.0); MCV 79.1 fL (80.0-100.0); RBC 3.43 mil/uL (4.50-6.00); RDW 19.7 % (10.5-14.5); WBC 13.2 thou/uL (4.0-11.0)
[2020-06-11 06:49] LABS: CALCIUM 8.4 mg/dL (8.5-10.1); POTASSIUM 3.8 mmol/L (3.5-5.1); TROPONIN-I 0.21 ng/mL (<0.06)
[2020-06-11 07:44] VITALS: BP 97/68
--- NOTE | 2020-06-11 11:02 | 2DMMODE ---
[address] [address] 2 D/M-MODE ECHOCARDIOGRAM Name: JANES BREAUX Room #: 357-P ADM IN M.R.#: [id number] Admission: 06/10/20 Attend Phys: Vance Cedillo MD Discharge: Date of : 62 Report #: [id number] THIS REPORT FOR: cc: Luke Aquino MD, Darren E. MD Park, Jin S. MD ~ APPROVED REPORT Study performed: 06/11/2020 10:22:03 EXAM: Comprehensive 2D, Doppler, and color-flow Echocardiogram Patient Location: Bedside Room #: 357 Status: routine BSA: 1.99 HR: 106 bpm BP: 97/68 mmHg Rhythm: Tachycardia Other Information Study Quality: Good Indications Congestive Heart Failure Atrial Fibrillation CAD Pericardial Effusion Cardiomyopathy 2D Dimensions IVC: 24.00 mm Tricuspid Valve TR Peak Richard.: 2.39 m/s TR Peak Gr.: 20.24 mmHg PA Pressure: 33.00 mmHg Left Ventricle The left ventricle is normal size. There is hypokinesis in the inferior and mid to apical anterior lee. There is normal left ventricular wall thickness. Left ventricular systolic function is moderate to severely decreased. LVEF is 30-35%. Right Ventricle [address] [address] 2 D/M-MODE ECHOCARDIOGRAM Name: JANES BREAUX Room #: 357-P ADM IN M.R.#: [id number] Admission: 06/10/20 Attend Phys: Vance Cedillo MD Discharge: Date of : 62 Report #: [id number] The right ventricle is normal size. The right ventricular systolic function is normal. Atria Left atrium is at the upper limits of normal. Right atrium is at the upper limits of normal. Aortic Valve The aortic valve is normal in structure. No aortic regurgitation is present. Mitral Valve The mitral valve is normal in structure. Tricuspid Valve The tricuspid valve is normal in structure. There is mild tricuspid regurgitation. Estimated PAP 33 mmHg. Pulmonic Valve The pulmonary valve is normal in structure. Great Vessels The aortic root is normal in size. IVC is dilated and collapses <50% with inspiration. Pericardium Small circumferential pericardial effusion. <Conclusion> The left ventricle is normal size. Left ventricular systolic function is moderate to severely decreased. The right ventricle is normal size. The aortic valve is normal in structure. The mitral valve is normal in structure. There is mild tricuspid regurgitation. Estimated PAP 33 mmHg. Small circumferential pericardial effusion. <ELECTRONICALLY SIGNED> By: Samson Mann MD 06/11/201101 01 01 Samson Mann MD /INF
[2020-06-11 11:16] VITALS: BP 80/55
[2020-06-11 12:57] VITALS: BP 88/49
[2020-06-11 15:38] VITALS: BP 93/63
[2020-06-11 16:43] VITALS: BP 88/60
[2020-06-11 19:20] LABS: HEMATOCRIT 27.7 % (42.0-52.0); HEMOGLOBIN 9.1 gm/dL (14.0-18.0); MCH 26.2 pg (26.0-34.0); MCHC 32.8 g/dL (28.0-37.0); RBC 3.46 mil/uL (4.50-6.00); RDW 20.1 % (10.5-14.5); WBC 9.8 thou/uL (4.0-11.0)
[2020-06-12 03:07] VITALS: BP 94/61
[2020-06-12 06:22] LABS: ABSOLUTE NEUTROPHILS 6.9 thou/uL (1.4-8.2); BASOPHILS 1.5 % (0.0-2.0); EOSINOPHILS 0.4 % (0.0-3.0); HEMATOCRIT 28.5 % (42.0-52.0); HEMOGLOBIN 9.2 gm/dL (14.0-18.0); LYMPHOCYTES 13.9 % (24.0-44.0); MCH 26.1 pg (26.0-34.0); MCHC 32.4 g/dL (28.0-37.0); MCV 80.5 fL (80.0-100.0); PLATELET COUNT 481 thou/uL (150-400); POLYS 76.2 % (36.0-66.0); RBC 3.53 mil/uL (4.50-6.00); RDW 21.1 % (10.5-14.5)
[2020-06-12 07:00] LABS: CALCIUM 8.2 mg/dL (8.5-10.1); CREATININE 1.1 mg/dL (0.7-1.3); POTASSIUM 3.8 mmol/L (3.5-5.1); TOTAL BILIRUBIN 0.6 mg/dL (0.2-1.0); TOTAL PROTEIN 6.8 g/dL (6.4-8.2)
[2020-06-12 07:43] VITALS: BP 108/66
--- NOTE | 2020-06-12 08:53 | EKG ---
[facility] [place] [address] ELECTROCARDIOGRAM REPORT Name: JANES BREAUX Room #: 357-P ADM IN M.R.#: [id number] Admission: 06/10/20 Attend Phys: Vance Cedillo MD Discharge: Date of : 62 Report #: [id number] THIS REPORT FOR: cc: Luke Aquino MD, Darren E. 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1960 Requested By: Blanquita Mantilla Order Number: [id number] MD: Franco Ortiz Measurements Intervals [place] Rate: 121 P: 0 MT: 151 QRS: 144 QRSD: 143 T: 51 QT: 305 QTc: 433 Interpretive Statements Sinus tachycardia RBBB and LPFB Inferior infarct, age indeterminate Anterolateral infarct, recent Compared to ECG 05/29/2020 05:34:48 Atrial flutter no longer present Electronically Signed On 06-12-2020 8:52:53 CDT by Franco Ortiz [email or web address] <ELECTRONICALLY SIGNED> By: Franco Ortiz MD, [facility] 06/12/20 0852 1620 1620 Franco Ortiz MD, FAC /EPI
[2020-06-12 11:07] VITALS: BP 99/65
[2020-06-12 15:33] VITALS: BP 103/67
[2020-06-12 17:10] VITALS: BP 104/71
[2020-06-12 20:00] VITALS: BP 102/68
[2020-06-13 03:37] VITALS: BP 109/75
[2020-06-13 06:39] LABS: HEMOGLOBIN 8.7 gm/dL (14.0-18.0); MCH 25.5 pg (26.0-34.0); MCHC 32.1 g/dL (28.0-37.0); MCV 79.3 fL (80.0-100.0); RBC 3.41 mil/uL (4.50-6.00); WBC 8.6 thou/uL (4.0-11.0)
[2020-06-13 08:20] VITALS: BP 103/81
[2020-06-13 11:45] VITALS: BP 103/64
[2020-06-13 15:50] VITALS: BP 115/82
[2020-06-13 19:30] VITALS: BP 116/75
[2020-06-14 04:00] VITALS: BP 113/82
[2020-06-14 08:20] VITALS: BP 140/88
[2020-06-14] MEDS ORDERED: DIGOXIN125 MCG PO (12:18)
[2020-06-14] MEDS ORDERED: K-DUR 20 MEQ T20 MEQ PO (12:18)
[2020-06-14] MEDS ORDERED: COZAAR 25 MG TA25 M1 PO (12:18)
[2020-06-14] MEDS ORDERED: LASIX 20 MG TAB20 MG PO (12:18)
[2020-06-14] MEDS ORDERED: AUGMENTIN 875-1 EACH PO (12:18)
[2020-06-14 12:35] VITALS: BP 120/84
[2020-06-14 13:05] VITALS: BP 140/88
== END 2020-06-14 14:35 | disposition home or self-care (01) | DRG 871 ==
LOC: ER 15:11 → EROBS 18:24 → 3W 18:24 → 2N 06-12 16:53
PROVIDERS: Emergency Medicine; Nurse Practitioner Family; Pediatrics; ADMIT Internal Medicine; ATTEND Internal Medicine
DX: A41.9 Sepsis, unspecified organism (principal); J18.9 Pneumonia, unspecified organism; J96.01 Acute respiratory failure with hypoxia; E43 Unspecified severe protein-calorie malnutrition; I50.43 Acute on chronic combined systolic (congestive) and diastolic (congestive) heart failure; I48.20 Chronic atrial fibrillation, unspecified; I31.3 Pericardial effusion (noninflammatory); I48.92 Unspecified atrial flutter; I11.0 Hypertensive heart disease with heart failure; E78.5 Hyperlipidemia, unspecified; K21.9 Gastro-esophageal reflux disease without esophagitis; G51.0 Bell's palsy; F17.210 Nicotine dependence, cigarettes, uncomplicated; I25.10 Atherosclerotic heart disease of native coronary artery without angina pectoris; I73.9 Peripheral vascular disease, unspecified; Y95 Nosocomial condition; I48.0 Paroxysmal atrial fibrillation; I25.5 Ischemic cardiomyopathy; E78.00 Pure hypercholesterolemia, unspecified; Z20.828 Contact with and (suspected) exposure to other viral communicable diseases; F10.10 Alcohol abuse, uncomplicated; F19.10 Other psychoactive substance abuse, uncomplicated; Z79.899 Other long term (current) drug therapy; Z79.01 Long term (current) use of anticoagulants; I25.2 Old myocardial infarction; Z95.5 Presence of coronary angioplasty implant and graft; Z88.8 Allergy status to other drugs, medicaments and biological substances; Z95.828 Presence of other vascular implants and grafts; Z68.25 Body mass index [BMI] 25.0-25.9, adult
CPT/HCPCS: 10081; 10879

== ENCOUNTER 2020-08-07 08:54 | Inpatient (IN) | payer BC, OTHER ==
[2020-08-07] VITALS (8 sets, daily range): BP systolic 87–115; BP diastolic 62–86
[~2020-08-07] VITALS: Ht 177.8 cm; Wt 91.6 kg
[~2020-08-07 08:54] MED LIST changes: +AUGMENTIN 875-1 EACH PO; +COZAAR 25 MG TA25 M1 PO; +DIGOXIN125 MCG PO; +K-DUR 20 MEQ T20 MEQ PO; +LASIX 20 MG TAB20 MG PO
[2020-08-07] MEDS ORDERED: SINGULAIR 10 MG10 M1 PO (09:20)
[2020-08-07] MEDS ORDERED: ALPRAZOLAM1 MG PO (09:20)
[2020-08-07] MEDS ORDERED: FLONASE 0.05%50 MCG NARES (09:21)
[2020-08-07] MEDS ORDERED: PROTONIX40 M2 PO (09:21)
--- NOTE | 2020-08-07 09:51 | EKG ---
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 : 1960 Requested By: Denzel Duffy Order Number: [id number] MD: Aaron Iverson Measurements Intervals [place] Rate: 82 P: 67 FL: 201 QRS: 131 QRSD: 164 T: 43 QT: 477 QTc: 558 Interpretive Statements Sinus rhythm Probable left atrial enlargement RBBB and LPFB Inferior infarct, old Compared to ECG 06/10/2020 16:20:18 Sinus tachycardia no longer present Myocardial infarct finding still present Electronically Signed On 08-07-2020 9:51:09 CDT by Aaron Iverson [email or web address] <ELECTRONICALLY SIGNED> By: Aaron Iverson MD, FACC 08/07/20 0951 6 6 Aaron Iverson MD, [facility] /EPI
[2020-08-07 11:04] LABS: MCH 21.8 pg (26.0-34.0); WBC 7.5 thou/uL (4.0-11.0)
[2020-08-07 11:06] LABS: HEMATOCRIT 21.4 % (42.0-52.0); MCHC 29.8 g/dL (28.0-37.0); MCV 73.2 fL (80.0-100.0); PLATELET COUNT 377 thou/uL (150-400); RBC 2.93 mil/uL (4.50-6.00); RDW 19.7 % (10.5-14.5)
[2020-08-07 11:07] LABS: HEMOGLOBIN 6.4 gm/dL (14.0-18.0)
[2020-08-07 11:12] LABS: ANION GAP 9 mmol/L (7-16); BUN 18 mg/dL (7-18); CALCIUM 8.3 mg/dL (8.5-10.1); CHLORIDE 104 mmol/L (98-107); CO2 24 mmol/L (21-32); CREATININE 1.1 mg/dL (0.7-1.3); GLUCOSE 114 mg/dL (74-106); POTASSIUM 4.4 mmol/L (3.5-5.1); SODIUM 137 mmol/L (136-145)
[2020-08-07 11:18] LABS: SGOT 361 U/L (15-37); SGPT 652 U/L (30-65); TOTAL BILIRUBIN 0.7 mg/dL (0.2-1.0); TOTAL PROTEIN 6.9 g/dL (6.4-8.2); TROPONIN-I <0.06 ng/mL (<0.06)
[2020-08-07 12:01] LABS: INR 1.4; PROTIME 13.9 Seconds (9.3-11.4)
[2020-08-07 13:26] LABS: ABSOLUTE NEUTROPHILS 4.6 thou/uL (1.4-8.2)
[2020-08-07 13:28] LABS: ANISOCYTOSIS 2+; MICROCYTES 1+; POLYCHROMASIA OCCASIONAL
[2020-08-07 13:29] LABS: HYPOCHROMASIA 2+; MACROCYTES FEW; SCHISTOCYTES OCCASIONAL
[2020-08-07 13:30] LABS: OVALOCYTES 1+
[2020-08-07 13:31] LABS: POIKILOCYTOSIS 1+
[2020-08-07 14:09] LABS: % SATURATION 3 % (20-39); IRON 12 ug/dL (65-175); TIBC 393 ug/dL (250-450)
[2020-08-07] MEDS ORDERED: FUROSEMIDE 20 M20 MG PO (14:20)
[2020-08-07] MEDS ORDERED: CARVEDILOL6.25 M1 PO (14:21)
[2020-08-07 14:22] LABS: ALBUMIN 3.3 g/dL (3.4-5.0); DIRECT BILIRUBIN 0.2 mg/dL (<0.1-0.2); TOTAL BILIRUBIN 0.6 mg/dL (0.2-1.0)
[2020-08-07] MEDS ORDERED: OLOPATADINE HCL5 ML OPHTHALMIC (14:22)
[2020-08-07] MEDS ORDERED: DIGITEK125 MC2 PO (14:23)
[2020-08-07] MEDS ORDERED: SILDENAFIL20 MG PO (14:24)
[2020-08-07] MEDS ORDERED: PACERONE200 MG PO (14:32)
[2020-08-07 15:43] LABS: FOLIC ACID 42.8 ng/mL (8.6-58.9)
--- NOTE | 2020-08-07 18:29 | NUR ---
1350 PT ADMITTTED TO 3W, ROOM 361, PT ALERT AND ORIENTED X4, DENIES CHEST PAIN, NAUSEA AND VOMITTING. PT IS ON ROOM AIR, NO SIGNS OF DISTRESS NOTED. PT PLACED ON TELEMETRY, RUNNING SR, BBB. CONSENTS SIGNED BY PT, INCLUDING BLOOD CONSENT. PT OREINTED TO ROOM. PT EDUCATED ABOUT FALL RISK DUE TO LOW HGB AND IS AWARE TO USED THE CALL LIGHT BEFORE GETTING OUT OF BE . FALL PRECAUTIONS PLACED, BED ALARM ON. AMISSION AND ASSESSMENT COMPLETED. CALL LIGHT AND TABLE WITHIN REACH. WILL CONTINUE TO MONITOR.
--- NOTE | 2020-08-07 19:17 | NUR ---
GI TEAM IS ANTICIPATING FOR EGD/COLONOSCOPY HOPEFULLY MONDAY. PT HASNT YET AGREED TO PROCEDURE. PT IS ON ELIQUIS AND EFFIENT WHICH DR. SILVER WANTS PT TO CONTINUE TO BE ON UNTIL A DAY BEFORE THE HIS PROCEDURE TO PREVENT ANY HEART COMPLICATIONS. MARIJA GRAMAJO AND PHARMACY MADE AWARE ABOUT ADRIANNE WONG. REPORT ALSO GIVEN TO TEJAL PATHAK.
--- NOTE | 2020-08-07 21:23 | NUR ---
CALLED WELL SERVICE FLOORPERSON FEED HANDLER FOR RESUMING ANTICOAGULATION. PER WELL SERVICE FLOORPERSON, , ATTENDING PHYSICIAN SAID NO ANTICOAGULATION TONIGHT AND HE'LL RE-EVALUATE IN AM. PT'S COVID TEST CAME BACK NEGATIVE AND COMMUNICATED TO WELL SERVICE FLOORPERSON FEED HANDLER AND MUSIC LIBRARY ASSISTANT GURMEET. SAMMO AT THIS TIME.
[2020-08-07 21:29] LABS: HEMATOCRIT 22.7 % (42.0-52.0); HEMOGLOBIN 7.2 gm/dL (14.0-18.0)
[2020-08-08] VITALS (8 sets, daily range): BP systolic 89–124; BP diastolic 59–92
[2020-08-08 05:35] LABS: HEMATOCRIT 20.1 % (42.0-52.0); WBC 6.9 thou/uL (4.0-11.0)
[2020-08-08 05:39] LABS: MCH 23.4 pg (26.0-34.0); MCHC 31.6 g/dL (28.0-37.0); MCV 73.9 fL (80.0-100.0); PLATELET COUNT 314 thou/uL (150-400); RBC 2.72 mil/uL (4.50-6.00); RDW 21.2 % (10.5-14.5)
[2020-08-08 05:41] LABS: HEMOGLOBIN 6.4 gm/dL (14.0-18.0)
[2020-08-08 06:03] LABS: CREATININE 1.3 mg/dL (0.7-1.3); MAGNESIUM 1.8 mg/dL (1.8-2.4); POTASSIUM 3.8 mmol/L (3.5-5.1)
[2020-08-08 06:56] LABS: ABSOLUTE NEUTROPHILS 4.1 thou/uL (1.4-8.2); ANISOCYTOSIS 2+; HYPOCHROMASIA 2+; MICROCYTES 1+; NUCLEATED RBCS 2 /100WBC; PLATELET ESTIMATE NORMAL
[2020-08-08 13:41] LABS: HEMATOCRIT 25.6 % (42.0-52.0); HEMOGLOBIN 8.1 gm/dL (14.0-18.0)
--- NOTE | 2020-08-08 15:13 | NUR ---
ASSUMED CARE APPROX 0700. PT ALERT AND ORIENTED X4. ASSESSMENTS CHARTED. BP'S HAVE BEEN SOFT TODAY, BUT IMPROVED AFTER BLOOD TRANSFUSION. BLOOD TRANSFUSION X1 COMPLETE W/O ANY REACTIONS OR COMPLICATIONS. PT ON RA W/O SIGNS OF DISTRESS NOTED. PT DENIES ACUTE PAIN. PT DENIES CHEST PAIN. DR. RUTHERFORD ROUNDED ON PT THIS AM. REPORTED TO HIM THAT PT HASN'T HAD ANY BM'S SO FAR THIS SHIFT. PER DR. RUTHERFORD CHANGE TO CLEAR LIQUIDS STARTING TOMORROW FOR C-SCOPE/EGD ON MONDAY. PT SLOWLY PROGRESSING TOWARDS PLAN OF CARE GOALS. WILL CONTINUE TO MONITOR.
--- NOTE | 2020-08-08 18:19 | NUR ---
PER SHAHZAD EDUARDO: OK TO D/C ISOLATION
[2020-08-09 05:17] LABS: HEMATOCRIT 23.5 % (42.0-52.0); HEMOGLOBIN 7.5 gm/dL (14.0-18.0); MCHC 31.8 g/dL (28.0-37.0); MCV 75.4 fL (80.0-100.0); RBC 3.12 mil/uL (4.50-6.00); RDW 20.8 % (10.5-14.5); WBC 7.4 thou/uL (4.0-11.0)
[2020-08-09 05:22] LABS: CREATININE 1.1 mg/dL (0.7-1.3); POTASSIUM 3.8 mmol/L (3.5-5.1)
[2020-08-09 05:42] VITALS: BP 121/94
--- NOTE | 2020-08-09 06:34 | NUR ---
PT UP AD SHADE TO BATHROOM. PT HAS NO COMPLAINTS OVER NIGHT. LABS CAME BACK WITH HgB DROPPING FROM 8.1 TO 7.5 THIS AM. HOURLY ROUNDING AND CALL LIGHT WITHIN REACH.
[2020-08-09 07:45] VITALS: BP 112/84
[2020-08-09 10:34] LABS: ALBUMIN 2.5 g/dL (3.4-5.0); TOTAL BILIRUBIN 0.5 mg/dL (0.2-1.0); TOTAL PROTEIN 6.2 g/dL (6.4-8.2)
--- NOTE | 2020-08-09 11:11 | NUR ---
PT CARE ASSUMED AT 0700, PT ALERT AND ORIENTED X4, DENIES ANY CHEST PAIN, COMPALINS OF NAUSEA AND ABDOMINAL PAIN. GI DR. RUTHERFORD IS AWARE, ZOPFRAN GIVEN FOR NAUSEA. PT IS ON ROOM AIR, NO SIGNS OF DISTRESS NOTED. ASSESSMENT AND VITALS SIGNS COMPLETED. CALL LIGHT AND TABLE WITHIN REACH. PT DENIES ANY NEEDS WILBERTO. 1103 DR. RUTHERFORD PAGED ABOUT PT DIET, OLAY WITH PT BEING ON JOLLY HEALTHY DIET AND NPO AFTER MIDNIGHT.
[2020-08-09 11:38] VITALS: BP 105/80
[2020-08-09 15:13] VITALS: BP 114/80
[2020-08-09 20:42] VITALS: BP 124/84
[2020-08-10 04:44] VITALS: BP 124/93
--- NOTE | 2020-08-10 06:25 | NUR ---
PT HAD A BM IN THE EARLY PART OF THE EVENING. ASSESSED THE BM AND NOTICED LIGHT BLOOD TINGE IN THE WATER. PT STATES HE HAS HEMORRHOIDS AND THEY WERE INFLAMED. GOT RX FOR PREP-H AND PT WAS HAPPY. PT HAS BEEN NPO SINCE 2400 FOR SCHEDULED EGD TODAY. TELE SHOWS SA W/BBB.
--- NOTE | 2020-08-10 08:32 | NUR ---
PT OF UNIT TO GI LAB.
[2020-08-10 09:23] LABS: BE(vivo) -1.9 mmol/L (-2 to +3); HCO3 23.4 mmol/L (22.0-26.0); PCO2 42.2 mmHg (35.0-45.0); PO2 229.2 mmHg (80.0-100.0); pH 7.362 (7.360-7.450); sO2 99.5 % (92.0-98.0)
--- NOTE | 2020-08-10 09:55 | NUR ---
PT RETURN FROM G.I. LAB.
[2020-08-10 11:25] VITALS: BP 114/86
--- NOTE | 2020-08-10 11:53 | NUR ---
INITIAL ASSESSMENT: Received consult for discharge needs. TORRES reviewed chart and spoke with nursing and attending physician. Pt was admitted due to hypoxia/CHF. Pt placed in Enhanced Isolation to r/o COVID-19. Pt's test is negative. Isolation precautions discontinued. Pt had EGD earlier today. Pt need colonoscopy or further work up prior to discharge. TORRES spoke with pt via phone. Introduced role of SW. Pt is alert/orientated x 4. Pt reports he lives at home alone. Prior to admission, he was independent with ADLs. No use of DME. No hx of services or post acute placement. Pt states he would like to do outpatient cardiac rehab at [facility], but his insurance is out of network. SW encouraged pt to call his insurance to find in-network providers. Pt would like to come to [facility], as this is where he has had his medical care this year. Pt's PCP is Dr. Luke Aquino. SW is following to assist as needed with discharge planning.
[2020-08-10 12:40] LABS: HEMATOCRIT 26.6 % (42.0-52.0); HEMOGLOBIN 8.3 gm/dL (14.0-18.0); MCH 24.1 pg (26.0-34.0); MCHC 31.3 g/dL (28.0-37.0); RBC 3.46 mil/uL (4.50-6.00); RDW 21.7 % (10.5-14.5); WBC 6.8 thou/uL (4.0-11.0)
[2020-08-10 13:02] LABS: CALCIUM 8.4 mg/dL (8.5-10.1); CREATININE 1.1 mg/dL (0.7-1.3); POTASSIUM 4.1 mmol/L (3.5-5.1)
--- NOTE | 2020-08-10 15:34 | 2DMMODE ---
[facility] [place] [address] 2 D/M-MODE ECHOCARDIOGRAM Name: JANES BREAUX Room #: 361-P ADM IN M.R.#: [id number] Admission: 08/07/20 Attend Phys: Percy Ahuja MD Discharge: Date of : 62 Report #: [id number] THIS REPORT FOR: cc: Luke Aquino MD, Darren E. MD Park, Jin S. MD ~ APPROVED REPORT Study performed: 08/10/2020 14:20:04 EXAM: Comprehensive 2D, Doppler, and color-flow Echocardiogram Patient Location: Bedside Room #: 361 Status: routine BSA: 2.10 HR: 80 bpm BP: 114/86 mmHg Rhythm: NSR Other Information Study Quality: Good Indications Congestive Heart Failure CAD Cardiomyopathy Hypertension/HDD 2D Dimensions RVDd: 34.95 mm IVSd: 7.97 (7-11mm) LVOT Diam: 18.22 (18-24mm) LVDd: 49.99 mm PWd: 8.93 (7-11mm) Ascending Ao: 29.25 (22-36mm) LVDs: 40.82 (25-40mm) Aortic Root: 29.63 mm IVC: 22.00 mm Volumes Left Atrial Volume (Systole) Single Plane 4CH: 74.33 mL Single Plane 2CH: 63.61 mL LA ESV Index: 36.00 mL/m2 Aortic Valve AoV Peak Richard.: 1.23 m/s AO Peak Gr.: 6.16 mmHg LVOT Max P.54 mmHg [facility] [place] [address] [place] [address] 2 D/M-MODE ECHOCARDIOGRAM Name: NAMITAJANES Room #: 361-P ADM IN ..#: [id number] Admission: 08/07/20 Attend Phys: Percy Ahuja MD Discharge: Date of : 62 Report #: [id number] LVOT Max V: 0.94 m/s CORRINA Vmax: 2.00 cm2 Mitral Valve E/A Ratio: 2.3 MV Decel. Time: 129.27 ms MV E Max Richard.: 1.33 m/s MV A Richard.: 0.58 m/s MV PHT: 37.49 ms IVRT: 92.27 ms Pulmonary Valve PV Peak Richard.: 0.97 m/s PV Peak Gr.: 3.79 mmHg Tricuspid Valve TR Peak Richard.: 3.01 m/s TR Peak Gr.: 36.26 mmHg PA Pressure: 46.00 mmHg Left Ventricle The left ventricle is normal size. There is severe hypokinesis in the apical, inferior and mid to distal anterior lee. There is normal left ventricular wall thickness. Left ventricular ejection fraction is severely decreased. LVEF is 25-30%. Severe diastolic dysfunction is present (restrictive filling). Right Ventricle The right ventricle is normal size. Atria Left atrium is dilated. Right atrium is dilated. Aortic Valve The aortic valve is normal in structure. No aortic regurgitation is present. There is no aortic valvular stenosis. Mitral Valve The mitral valve is normal in structure. Mild to moderate mitral regurgitation. No evidence of mitral valve stenosis. Tricuspid Valve The tricuspid valve is normal in structure. There is moderate to severe tricuspid regurgitation. Estimated PAP 46 mmHg. There is moderate pulmonary hypertension. Pulmonic Valve [facility] [address] [place] [address] 2 D/M-MODE ECHOCARDIOGRAM Name: JANES BREAUX Room #: 361-P [facility].#: [id number] Admission: 08/07/20 Attend Phys: Percy Ahuja MD Discharge: Date of : 62 Report #: [id number] The pulmonary valve is normal in structure. There is no pulmonic valvular regurgitation. Great Vessels The aortic root is normal in size. IVC is dilated and collapses <50% with inspiration. Pericardium There is no pericardial effusion. <Conclusion> The left ventricle is normal size. Left ventricular ejection fraction is severely decreased. The right ventricle is normal size. Left atrium is dilated. The aortic valve is normal in structure. Mild to moderate mitral regurgitation. There is moderate to severe tricuspid regurgitation. Estimated PAP 46 mmHg. <ELECTRONICALLY SIGNED> By: Samson Mann MD 08/10/20 1533 1533 1533 Samson Mann MD /CRIS
--- NOTE | 2020-08-10 17:41 | NUR ---
KANDICE CALLED TO DELANO TOURE.
[2020-08-10 19:25] VITALS: BP 115/83
[2020-08-11 05:26] LABS: HEMATOCRIT 25.6 % (42.0-52.0); HEMOGLOBIN 8.1 gm/dL (14.0-18.0); MCHC 31.6 g/dL (28.0-37.0); RBC 3.37 mil/uL (4.50-6.00); RDW 22.3 % (10.5-14.5); WBC 7.9 thou/uL (4.0-11.0)
[2020-08-11 05:28] LABS: CALCIUM 8.2 mg/dL (8.5-10.1); CREATININE 1.2 mg/dL (0.7-1.3); POTASSIUM 4.3 mmol/L (3.5-5.1)
[2020-08-11 07:33] VITALS: BP 117/85
--- NOTE | 2020-08-11 07:44 | NUR ---
ASSUMED PT CARE AROUND 1930. AXOX4. INDEPENDENT WITH ADLS. KEPT NPO FOR GI PROCEDURE TODAY. VSS. NO S/S ACUTE DISTRESS NOTED OR REPORTED AT THIS TIME. CARE TRASFERRED TO AM RN AT THIS TIME.
--- NOTE | 2020-08-11 14:05 | NUR ---
PT HAVING A FLEX SIG THIS DAY. PT HAD EXPRESSED INTEREST IN OP CARDIAC REHAB UPON DC. [facility] OON PT TO CHECK WITH INSURANCE FOR IN NETWORK PROVIDERS. CM TO FOLLOW INDICATED WITH DC PLANNING.
[2020-08-11] MEDS ORDERED: HYDROCORT-PRAMO30 G1 RECTAL (14:22)
[2020-08-11 15:24] VITALS: BP 135/102
[2020-08-11 16:01] VITALS: BP 135/102
--- NOTE | 2020-08-11 17:47 | NUR ---
ASSUMED PT CARE THIS AM. PT CITAL SIGNS STABLE, A&OX4. PT AMBULATORY TO BEDSIDE COMMODE. IV PATENT, CALLED WHEN NEEDED. PT RECEIVED TWO TAP ENEMAS PRIOR TO GI PROCEDURE. WENT DOWN TO GI PROCEDURE, RECEIVED BACK ON UNIT. PT DISCHARGED TO HOME WITH NO ISSUES. ON TELE, PT WAS NSR.
--- NOTE | 2020-08-13 12:53 | P ---
[facility] [place] [address] PROCEDURE REPORT Name: JANES BREAUX Room #: 455-P [facility]..#: [id number] Admission: 08/07/20 Attend Phys: Percy Ahuja MD Discharge: 08/11/20 Date of : 62 Report #: [id number] THIS REPORT FOR: cc: Luke Aquino MD, Darren E. MD McElhinney, Christian C. MD ~ CC: Luke Ahuja DATE OF SERVICE: 08/11/2020 PROCEDURE PERFORMED: Flexible sigmoidoscopy. HISTORY OF PRESENT ILLNESS: The patient is a 60-year-old male, who was admitted with some bright red blood per rectum. He had a colonoscopy approximately a year ago at [facility], reportedly with hemorrhoids that were banded at that time. We do not have a copy of this report. The patient has been on Eliquis and Effient for previous cardiac stent placement as well as a AFib history. The patient's hemoglobin on admission was 6.4. He underwent transfusion of 2 units of packed cells on the and the . He continues to have a small amount of bright red blood per rectum. Hemoglobin today is 8.1. Upper endoscopy was performed yesterday, which was negative. Plan is for flexible sigmoidoscopy. DESCRIPTION OF PROCEDURE: The risks and benefits of the procedure were explained to the patient, those risks including but not limited to bleeding, perforation and the risk of sedation. He understood these risks and gave informed consent. Sedation was given using propofol per Anesthesia. Next, a digital rectal exam showed large external hemorrhoids, nonbleeding, otherwise normal. Next, using a standard Olympus colonoscope, the scope was placed in the patient's anus and advanced under direct vision to the transverse, ascending colon region, at which point, the prep was still fair in this area. The scope was then slowly withdrawn. There was no evidence of blood throughout the entire colon. There was a normal-appearing yellow, brownish stool in areas. No evidence of colitis. The transverse, descending and sigmoid colon were all normal. The rectal mucosa was normal. On retroflexion, no abnormalities were noted. Close examination of the anal canal showed very large multiple external hemorrhoids somewhat erythematous. No evidence of thrombosis. No evidence of active bleeding at this time. The scope was then withdrawn and the procedure terminated. The patient tolerated the procedure well. IMPRESSION: Multiple large external hemorrhoids, likely source of bright red blood per rectum. Of note, no evidence of blood throughout the colon today on endoscopy. Also, no evidence of colitis or inflammation throughout the colonic mucosa. [address] [address] PROCEDURE REPORT Name: ANAJANES ALVAREZ Room #: 455-P [facility] IN M.R.#: [id number] Admission: 08/07/20 Attend Phys: Percy Ahuja MD Discharge: 08/11/20 Date of : 62 Report #: [id number] RECOMMENDATIONS: Continue Analpram several times a day. I suspect due to the size and the fact he continues to have bleeding at times as well as being on long-term anticoagulation therapy, I would consider surgical options for his large external hemorrhoids. Thank you for allowing me to participate in his care. <ELECTRONICALLY SIGNED> By: Mitch Isbell MD 08/13/20 [id number] Mitch Isbell MD /nt
== END 2020-08-11 17:23 | disposition home or self-care (01) | DRG 811 ==
LOC: ER 08:54 → 3W 12:53 → ER 12:54 → 3W 12:54 → 4W 08-10 17:47
PROVIDERS: Anesthesiology; Emergency Medicine; Nurse Practitioner; Nurse Practitioner Family; ADMIT Hospitalist; ATTEND Hospitalist
PROC: 30233N1 Transfusion of Nonautologous Red Blood Cells into Peripheral Vein, Percutaneous Approach (ICD-10-PCS; principal; 2020-08-07)
PROC: 0DJ08ZZ Inspection of Upper Intestinal Tract, Via Natural or Artificial Opening Endoscopic (ICD-10-PCS; 2020-08-10)
PROC: 0DJD8ZZ Inspection of Lower Intestinal Tract, Via Natural or Artificial Opening Endoscopic (ICD-10-PCS; 2020-08-11)
DX: D62 Acute posthemorrhagic anemia (principal); I50.23 Acute on chronic systolic (congestive) heart failure; J98.11 Atelectasis; K62.5 Hemorrhage of anus and rectum; E78.5 Hyperlipidemia, unspecified; K21.9 Gastro-esophageal reflux disease without esophagitis; I25.5 Ischemic cardiomyopathy; I73.9 Peripheral vascular disease, unspecified; I48.0 Paroxysmal atrial fibrillation; I11.0 Hypertensive heart disease with heart failure; I25.10 Atherosclerotic heart disease of native coronary artery without angina pectoris; F17.210 Nicotine dependence, cigarettes, uncomplicated; F12.90 Cannabis use, unspecified, uncomplicated; K64.4 Residual hemorrhoidal skin tags; K21.0 Gastro-esophageal reflux disease with esophagitis; Z20.828 Contact with and (suspected) exposure to other viral communicable diseases; I25.2 Old myocardial infarction; Z95.5 Presence of coronary angioplasty implant and graft; Z88.8 Allergy status to other drugs, medicaments and biological substances; Z71.6 Tobacco abuse counseling; Z79.899 Other long term (current) drug therapy
CPT/HCPCS: 10045; 10879; 62110; 62900; 70005

== ENCOUNTER → 2020-10-01 | Outpatient (CLI) | payer BC, OTHER ==
[~2020-10-01] MED LIST changes: +ALPRAZOLAM1 MG PO; +CARVEDILOL6.25 M1 PO; +DEMADEX20 MG PO; +DIGITEK125 MC2 PO; +FLONASE 0.05%50 MCG NARES; +FLONASE 0.05%50 MCG NASAL; +FUROSEMIDE 20 M20 MG PO; +HYDROCORT-PRAMO30 G1 RECTAL; +OLOPATADINE HCL5 ML OPHTHALMIC; +PACERONE200 MG PO; +PROTONIX40 M2 PO; +SILDENAFIL20 MG PO; +SINGULAIR 10 MG10 M1 PO; +SINGULAIR 10 MG10 MG PO
== END ==
LOC: LAB 12:26
PROVIDERS: ATTEND Internal Medicine Cardiovascular Disease
DX: Z01.812 Encounter for preprocedural laboratory examination (principal); Z20.828 Contact with and (suspected) exposure to other viral communicable diseases

== ENCOUNTER 2020-10-02 10:49 | Inpatient (IN) | payer BC, OTHER ==
[~2020-10-02] VITALS: Ht 177.8 cm; Wt 90.3 kg
[~2020-10-02 10:49] MED LIST changes: -DEMADEX20 MG PO; -FLONASE 0.05%50 MCG NASAL; -SINGULAIR 10 MG10 MG PO
[2020-10-02 11:32] VITALS: BP 122/53
[2020-10-02] MEDS ORDERED: DEMADEX20 MG PO (11:53)
[2020-10-02 12:13] LABS: MCH 21.4 pg (26.0-34.0); WBC 6.5 thou/uL (4.0-11.0)
[2020-10-02 12:15] LABS: ABSOLUTE NEUTROPHILS 3.6 thou/uL (1.4-8.2); HEMATOCRIT 20.4 % (42.0-52.0); MCHC 29.9 g/dL (28.0-37.0); MCV 71.5 fL (80.0-100.0); MONOCYTES 10.9 % (1.0-8.0); PLATELET COUNT 329 thou/uL (150-400); POLYS 55.1 % (36.0-66.0); RBC 2.85 mil/uL (4.50-6.00); RDW 20.8 % (10.5-14.5)
[2020-10-02 12:21] LABS: CALCIUM 8.2 mg/dL (8.5-10.1); CREATININE 1.3 mg/dL (0.7-1.3); POTASSIUM 3.1 mmol/L (3.5-5.1)
[2020-10-02 12:28] LABS: ALBUMIN 3.1 g/dL (3.4-5.0); TOTAL BILIRUBIN 0.3 mg/dL (0.2-1.0); TOTAL PROTEIN 6.8 g/dL (6.4-8.2)
[2020-10-02 12:31] LABS: APTT 24.2 Seconds (24.5-32.8); INR 1.2; PROTIME 12.1 Seconds (9.3-11.4)
[2020-10-02 12:34] LABS: HEMOGLOBIN 6.1 gm/dL (14.0-18.0)
[2020-10-02 13:12] LABS: ANISOCYTOSIS 1+; HYPOCHROMASIA 1+
[2020-10-02 13:13] LABS: MICROCYTES 1+
[2020-10-02] MEDS ORDERED: XANAX1 MG PO (15:12)
[2020-10-02] MEDS ORDERED: SINGULAIR 10 MG10 MG PO (15:14)
[2020-10-02] MEDS ORDERED: FLONASE 0.05%50 MCG NASAL (15:14)
[2020-10-02 16:42] VITALS: BP 107/89
[2020-10-02 17:37] VITALS: BP 95/67; BP 99/67
[2020-10-02 20:15] VITALS: BP 129/79; BP 99/67
--- NOTE | 2020-10-02 20:32 | NUR ---
PT. ARRIVED AT THE FLOOR AROUND 1530; AOX4; NO C/O PAIN; SR ON THE MONITOR; ADMISSION PERFORMED; EDUCATED ABOUT FALL PREVENTIONS; ST. UNDERSTANDING; REQUESTED DIET; NO DIET ORDERS; FIDEL LAWSON SKEIN WINDER NOTIFIED; ORDERS ON PLACED; PT. UPSET BECAUSE DID NOT UNDERSTAND REASON FOR CL DIET; PHYSICIAN DID NOT NOTIFIED DURING ROUNDING; GI PAGED; NO DIET CHANGED; 1 UNIT OF BLOOD TRANSFUSION STARTED; VS WNL; ADMISSION PERFORMED; ASSESSMENT CHARGED; FOLLOWING POC; PASSED ON REPORT;
[2020-10-02 23:07] LABS: HEMATOCRIT 24.9 % (42.0-52.0); HEMOGLOBIN 7.6 gm/dL (14.0-18.0)
[2020-10-02 23:18] LABS: % SATURATION 3 % (20-39); IRON 13 ug/dL (65-175); TIBC 515 ug/dL (250-450)
[2020-10-03] VITALS (8 sets, daily range): BP systolic 90–113; BP diastolic 57–84
--- NOTE | 2020-10-03 03:07 | NUR ---
PT CARE ASSSUMED WITH PT IN BED WATCHING TV AT 1915 .PT WAS RECEIVING BLOOD WHEN STAFF TOOK OVER.STAFF MONITOR BLLOD TILL END OF TRANSFUSION AND HGB CHECKED AFTER TRANSFUSION AND WAS 7.6. STAFF INFORMED ROX REICH AND SHE WAS OK AND ORDERED RECHECK AT AM CAUSE 2 PINTS OF BLOOD WAS ORDERED.BLOOD PRESSURE WAS 90/61 AND ROX REICH NOTIFIED .PT IS UP AD SHADE AND A/O X4.PT IS ON CLEAR LIQ DIET AND WANTS IT CHANGED SO HE COULD EAT.WILL CONTINUE TO MONITOR
[2020-10-03 05:24] LABS: HEMATOCRIT 21.4 % (42.0-52.0); HEMOGLOBIN 6.5 gm/dL (14.0-18.0); MCH 21.9 pg (26.0-34.0); MCHC 30.5 g/dL (28.0-37.0); MCV 71.7 fL (80.0-100.0); PLATELET COUNT 310 thou/uL (150-400); RBC 2.99 mil/uL (4.50-6.00); RDW 21.6 % (10.5-14.5)
[2020-10-03 10:48] LABS: ABSOLUTE NEUTROPHILS 3.5 thou/uL (1.4-8.2)
[2020-10-03 10:49] LABS: HYPOCHROMASIA 3+; MICROCYTES 3+; POIKILOCYTOSIS 2+; TARGET CELLS 1+
[2020-10-03 10:50] LABS: OVALOCYTES 1+
[2020-10-03 12:20] LABS: HEMATOCRIT 25.6 % (42.0-52.0); HEMOGLOBIN 7.9 gm/dL (14.0-18.0)
--- NOTE | 2020-10-03 19:57 | NUR ---
RECEIVED PT'S CARE AROUND 0715; PT. ON BED RESTING WITH EYES CLOSED; EQUAL CHEST RISING NOTICED; BLOOD TRANSFUSION GOING; SR ON THE MONITOR; DURING AM ASSESSMENT AOX4; NO C/O PAIN; PER GI PHYSICIAN OK TO ADVANCE DIET TO REGULAR; DIET CHANGED; AM MEDICATIONS GIVEN; REFUSED XANAX; BLOOD TRANSFUSION COMPLETED AT 1030; NO C/O HEADACHE OR BACK PAIN; HH RE-ASSESSED ABOVE 7; CHECK LABS; EDUCATED ABOUT FALL PRECAUTIONS; ST. UNDERSTANDING; ASSESSMENT CHARGED; FOLLOWING POC; PASSED ON REPORT;
[2020-10-04 03:45] VITALS: BP 96/61
--- NOTE | 2020-10-04 04:24 | NUR ---
SLEPT MOST OF SHIFT. UP TO BATHROOM WITH STEADY GAIT. DENIES COMPLAINTS OF PAIN OR SHORTNESS OF AIR. VSS. WORKING ON GOALS AND PLAN OF CARE FOR NOC. PROGRESSING TOWARDS GOALS FOR DEFIBRILATOR PLACEMENT ON MONDAY. CONTINUE TO FABY GUERRERO.
[2020-10-04 08:30] VITALS: BP 84/56
[2020-10-04 09:30] VITALS: BP 87/60
[2020-10-04 09:37] LABS: HEMATOCRIT 24.4 % (42.0-52.0); HEMOGLOBIN 7.5 gm/dL (14.0-18.0); MCH 22.8 pg (26.0-34.0); MCHC 30.9 g/dL (28.0-37.0); MCV 73.7 fL (80.0-100.0); RBC 3.3 mil/uL (4.50-6.00); RDW 22.8 % (10.5-14.5); WBC 6.3 thou/uL (4.0-11.0)
[2020-10-04 15:30] VITALS: BP 103/838
[2020-10-04 17:05] VITALS: BP 102/68; BP 111/78
[2020-10-04 20:12] VITALS: BP 111/78
--- NOTE | 2020-10-04 21:11 | NUR ---
RECEIVED PT'S CARE AROUND 0720; PT. RESTING WITH EYES CLOSED; SR ON THE MONITOR; DURING AM ASSESSMENT PT. AOX4; NO C/O PAIN; BP ON THE 80s: HOLD AM CARVEDILOL; HEMOGLOBIN ABOVE 7; NO C/O DIZZINESS; AT NOON PT'S BP ABOVE 100s; DURING THE AFTERNOON PT. AMBULATED AROUND THE UNITR; ST ON THE MONITOR NOTICED; DURING THE EVENING BLOOD TRANSFUSION ORDERS ON PLACED; PT. NOTIFIED; ST. UNDERSTANDING; BLOOD TRANSFUSION STARTED CLOSE TO 1700; VS WNL; IV INFILTRATED; NEW IV STARTED BY IV TEAM; PM CARVEDILOL GIVEN; DURING SHIFT CHANGED BLOOD TRANSFUSING; PASS ON REPORT; ASSESSMENT CHARGED; FOLLOWING POC; PASSED ON REPORT;
[2020-10-05 04:04] LABS: HEMOGLOBIN 8.7 gm/dL (14.0-18.0); MCH 23.7 pg (26.0-34.0); MCHC 31.1 g/dL (28.0-37.0); MCV 76.3 fL (80.0-100.0); RBC 3.67 mil/uL (4.50-6.00); WBC 7.9 thou/uL (4.0-11.0)
[2020-10-05 04:05] VITALS: BP 109/78
[2020-10-05 04:18] LABS: CREATININE 1.2 mg/dL (0.7-1.3); POTASSIUM 3.3 mmol/L (3.5-5.1)
--- NOTE | 2020-10-05 05:30 | NUR ---
PATIENT HAD TROUBLE SLEEPING TONIGHT. UP AD SHADE TO BATHROOM. NO COMPLAINTS OF PAIN OR SOB. BP REMAIN STABLE, 0400 109/78. HEMOGLOBIN 8.7. CARDIAC DEFIBILLATOR PLACEMENT TODAY. REMAINED NPO PAST MIDNIGHT. CONTINUING TO ASSESS CLOSELY AND NEEDED.
[2020-10-05 08:20] VITALS: BP 97/50
[2020-10-05 11:10] VITALS: BP 106/78
--- NOTE | 2020-10-05 19:06 | NUR ---
ASSUMED CARE PT SHIFT CHANGE. ASSESSMENTS CHARTED.MEDS GIVEN PER JAN .PT ALERT AND ORIENTED VSS. DENIES PAIN. O2 SATS WNL ONRA. ICD PLACED, IMMOBILIZER IN PLACE. INCISION [employer]ENDING ASSISTANT WITH SURGICAL GLUE. POST OP VSS. PT DENIES NEEDS AT THIS TIME. CONTINUING TO MONITOR AND FOLLOW POC. WILL PASS ON REPORT TO ALE RN.
[2020-10-05 19:10] VITALS: BP 109/82; BP 152/60
[2020-10-05 23:14] VITALS: BP 118/84
[2020-10-06 04:00] VITALS: BP 106/77
[2020-10-06 04:21] LABS: CALCIUM 8.7 mg/dL (8.5-10.1); CREATININE 1.2 mg/dL (0.7-1.3); POTASSIUM 4.2 mmol/L (3.5-5.1)
[2020-10-06 05:07] LABS: HEMATOCRIT 27.8 % (42.0-52.0); HEMOGLOBIN 8.6 gm/dL (14.0-18.0); MCH 24.1 pg (26.0-34.0); MCHC 30.8 g/dL (28.0-37.0); MCV 78.2 fL (80.0-100.0); RBC 3.56 mil/uL (4.50-6.00); RDW 23.5 % (10.5-14.5); WBC 7.6 thou/uL (4.0-11.0)
--- NOTE | 2020-10-06 05:46 | NUR ---
PATIENT SLEPT PART OF THE NIGHT. VSS. NO COMPLAINTS OF PAIN OR SOA. UP AD SHADE WITH STEADY GAIT. ICD PLACED AND IMMOBOLIZER PRESENT. MEDICATIONS GIVEN PER MAR. CONTINUING TO ASSESS PER POC.
[2020-10-06] MEDS ORDERED: ASPIR-TRIN325 MG PO (07:24)
[2020-10-06 08:00] VITALS: BP 111/84
[2020-10-06 11:05] VITALS: BP 106/77
--- NOTE | 2020-10-06 13:36 | NUR ---
DISCHARGE INSTRUCTIONS REVIEWED WITH PT. ALL QUESTIONS ANSWERED. PIV AND TELE WERE DC'D PRIOR TO DC. PT WHEELED OUT.
== END 2020-10-06 13:41 | disposition home or self-care (01) | DRG 227 ==
LOC: CATH 10:49 → 2N 14:59 → CATH 15:08 → 2N 10-06 13:41
PROVIDERS: Hospitalist; Internal Medicine; Internal Medicine Cardiovascular Disease; Nurse Practitioner; Nurse Practitioner Adult Health; ADMIT Hospitalist; ATTEND Hospitalist
PROC: 30233N1 Transfusion of Nonautologous Red Blood Cells into Peripheral Vein, Percutaneous Approach (ICD-10-PCS; principal; 2020-10-02)
PROC: 0JH608Z Insertion of Defibrillator Generator into Chest Subcutaneous Tissue and Fascia, Open Approach (ICD-10-PCS; 2020-10-05)
PROC: 02HK3KZ Insertion of Defibrillator Lead into Right Ventricle, Percutaneous Approach (ICD-10-PCS; 2020-10-05)
PROC: 02H63KZ Insertion of Defibrillator Lead into Right Atrium, Percutaneous Approach (ICD-10-PCS; 2020-10-05)
DX: I25.5 Ischemic cardiomyopathy (principal); I50.22 Chronic systolic (congestive) heart failure; E44.1 Mild protein-calorie malnutrition; D62 Acute posthemorrhagic anemia; K92.2 Gastrointestinal hemorrhage, unspecified; I25.10 Atherosclerotic heart disease of native coronary artery without angina pectoris; E78.5 Hyperlipidemia, unspecified; I11.0 Hypertensive heart disease with heart failure; G51.0 Bell's palsy; I73.9 Peripheral vascular disease, unspecified; I48.0 Paroxysmal atrial fibrillation; E87.6 Hypokalemia; F10.10 Alcohol abuse, uncomplicated; K21.9 Gastro-esophageal reflux disease without esophagitis; F17.210 Nicotine dependence, cigarettes, uncomplicated; D50.9 Iron deficiency anemia, unspecified; Z79.01 Long term (current) use of anticoagulants; Z79.899 Other long term (current) drug therapy; I25.2 Old myocardial infarction; Z88.8 Allergy status to other drugs, medicaments and biological substances; Z68.28 Body mass index [BMI] 28.0-28.9, adult; Z95.5 Presence of coronary angioplasty implant and graft

== ENCOUNTER → 2020-12-22 | Outpatient (CLI) | payer OTHER ==
[~2020-12-22] MED LIST changes: +ASPIR-TRIN325 MG PO; +DEMADEX20 MG PO; +FLONASE 0.05%50 MCG NASAL; +SINGULAIR 10 MG10 MG PO
== END ==
LOC: SJCVCIMAG 08:34
PROVIDERS: ATTEND Internal Medicine Cardiovascular Disease
DX: I08.1 Rheumatic disorders of both mitral and tricuspid valves (principal); I25.10 Atherosclerotic heart disease of native coronary artery without angina pectoris; I25.5 Ischemic cardiomyopathy; F17.200 Nicotine dependence, unspecified, uncomplicated; Z95.810 Presence of automatic (implantable) cardiac defibrillator

== ENCOUNTER → 2021-10-01 | Outpatient (CLI) | payer OTHER | LOC: SJCVCIMAG 10:32 | PROVIDERS: ATTEND Internal Medicine Cardiovascular Disease | DX: I21.09 ST elevation (STEMI) myocardial infarction involving other coronary artery of anterior wall (principal); I21.19 ST elevation (STEMI) myocardial infarction involving other coronary artery of inferior wall; I25.10 Atherosclerotic heart disease of native coronary artery without angina pectoris; K21.9 Gastro-esophageal reflux disease without esophagitis; E78.5 Hyperlipidemia, unspecified; F17.200 Nicotine dependence, unspecified, uncomplicated; F12.90 Cannabis use, unspecified, uncomplicated; I10 Essential (primary) hypertension; Z95.818 Presence of other cardiac implants and grafts; Z95.0 Presence of cardiac pacemaker; Z72.89 Other problems related to lifestyle; Z88.5 Allergy status to narcotic agent; Z88.8 Allergy status to other drugs, medicaments and biological substances; Z79.82 Long term (current) use of aspirin; Z79.899 Other long term (current) drug therapy ==